=== PATIENT | female | born 1955 | race Hispanic/Latino ===

== ENCOUNTER 2017-02-13 14:56 | Emergency (ER) | payer MEDICAID ==
[2017-02-13 15:11] VITALS: BP 137/79; PULSE 97; RESP 16; TEMP 98.1; O2SAT 98
[2017-02-13] MEDS ORDERED: Sodium Chloride 0.9% 1,000 ML IV STA (15:20)
--- NOTE | 2017-02-13 15:31 | ED PDOC ---
Hyperglycemia/Hypoglycemia Time Seen by Provider: 02/13/17 15:13 Chief Complaint (Nursing): High Blood Sugar Chief Complaint (Provider): High Blood Sugar History Per: Patient History/Exam Limitations: no limitations Onset/Duration Of Symptoms: Days (x2 days) Current Symptoms Are (Timing): Still Present : The patient does not have any of the infectious symptoms listed except for those marked. Additional Complaint(s): 61 y/o female with a past medical history of diabetes, hypertension, hypercholesterolemia, and early cirrhosis who presents to the emergency department with ongoing hyperglycemia x2 days. Associated with lightheadedness, weakness, dizziness, mild dyspnea on exertion excessive thirst and urination. Reports it is because she ran out of the type of insulin she is prescribed and is to expensive to pay for her refills. States she was experiencing a mild cough and leg swelling last week but had resolved since. Denies fever, headache , or syncopal episodes. PMD: Dr. Cox Past Medical History Reviewed: Historical Data, Nursing Documentation, Vital Signs Vital Signs: Last Vital Signs Temp 98.1 F 02/13/17 15:09 Pulse 97 H 02/13/17 15:09 Resp 16 02/13/17 15:09 BP 137/79 02/13/17 15:09 Pulse Ox 98 02/13/17 15:09 - Medical History PMH: Diabetes, HTN Denies: Hyperthyroidism, Hypothyroidism - Surgical History Surgical History: Other surgeries: Tubal ligation, fibroid resection, and breat reduction - Family History Family History: States: Unknown Family Hx, Diabetes - Social History Current smoker - smoking cessation education provided: No Alcohol: None Drugs: Denies - Home Medications Home Medications: Ambulatory Orders Medication Instructions Recorded Meclizine [Meclizine*] 25 mg PO TID PRN #10 tab 10/14/14 Ondansetron ODT [Zofran ODT] 4 mg PO Q8H PRN #20 odt 03/24/15 Cephalexin [Keflex] 500 mg PO Q6 #28 cap 07/13/15 Sulfamethoxazole/Trimethoprim 2 tab PO BID #28 tab 07/13/15 [Bactrim DS 800 mg-160 mg] Famotidine [Pepcid] 20 mg PO BID #8 tab 08/07/15 Prednisone 40 mg PO DAILY #8 tablet 08/07/15 Ibuprofen [Advil Liqui-Gels] 2 tab PO Q8 PRN #0 capsule 11/30/15 oxyCODONE/Acetaminophen [Percocet 1 ea PO Q6 PRN #10 tab 11/30/15 5/325 mg Tab] Ondansetron [Zofran] 4 mg PO Q8H PRN #30 tab 02/26/16 - Allergies Allergies/Adverse Reactions: Allergies Allergy/AdvReac Type Severity Reaction Status Date / Time sesame seed Allergy RASH Verified 02/26/16 17:02 Review of Systems ROS Statement: Except As Marked, All Systems Reviewed And Found Negative Constitutional: Positive for: Other (Excessive thirst) Respiratory: Positive for: Cough (Had resolved since), Other (Mild dyspnea on exertion) Genitourinary Female: Positive for: Frequency Musculoskeletal: Positive for: Other (Leg swelling (had resolved since)) Neurological: Positive for: Weakness, Dizziness (Lightheadedness). Negative for : Other (syncopal episode) Physical Exam - Reviewed Nursing Documentation Reviewed: Yes Vital Signs Reviewed: Yes - Physical Exam Appears: Positive for: Well, No Acute Distress Head Exam: Positive for: ATRAUMATIC, NORMOCEPHALIC Skin: Positive for: Warm, Dry Eye Exam: Positive for: EOMI, PERRL ENT: Negative for: Pharyngeal Erythema, Tonsillar Exudate Neck: Positive for: Painless ROM, Supple Cardiovascular/Chest: Positive for: Regular Rate, Rhythm, Chest Non Tender. Negative for: Murmur Respiratory: Positive for: Normal Breath Sounds, Rhonchi. Negative for: Accessory Muscle Use, Respiratory Distress Gastrointestinal/Abdominal: Positive for: Soft. Negative for: Tenderness Back: Positive for: Normal Inspection. Negative for: Vertebral Tenderness Extremity: Positive for: Normal ROM. Negative for: Deformity Lymphatic: Negative for: Adenopathy Neurologic/Psych: Positive for: Alert. Negative for: Motor/Sensory Deficits - Laboratory Results Result Diagrams: 02/13/17 15:37 02/13/17 15:37 - ECG O2 Sat by Pulse Oximetry: 98 (RA) Pulse Ox Interpretation: Normal Medical Decision Making Medical Decision Making: Time: 15:24 Initial Impression: Hyperglycemia. Differential includes DKA, dehydration, and electrolyte abnormality Initial Plan: --VBG --Labs --Urine DIP --Blood work-up --Sodium Chloride 1L IV --Urinalysis --Urine DIP --Reevaluation Labs consistent with dehydration and hyperglycemia. Accucheck improved with IVF Insl[place] given in ER. Advised strict diabetic diet, increase water intake, and follow up with Dr Dilshad billings Scribe Attestation: Documented by Greta Sharif, acting as a scribe for Daniella Burgess MD. Provider Scribe Attestation: All medical record entries made by the Scribe were at my direction and personally dictated by me. I have reviewed the chart and agree that the record accurately reflects my personal performance of the history, physical exam, medical decision making, and the department course for this patient. I have also personally directed, reviewed, and agree with the discharge instructions and disposition. Disposition - Clinical Impression Clinical Impression: Hyperglycemia Counseled Patient/Family Regarding: Studies Performed, Diagnosis, Need For Followup - Disposition Referrals: Isa Yung MD [Medical Doctor] - 02/14/17 Disposition: Routine/Home Disposition Time: 17:27 Condition: IMPROVED Instructions: Diabetic Hyperglycemia (ED) Print Language: GREENLANDIC
[2017-02-13 15:40] LABS: VENOUS BLOOD GAS BASE EXCESS 1.9 mmol/L (0.0-2.0); VENOUS BLOOD GAS PCO2 41 mmHg (40-60); VENOUS BLOOD PH 7.42 (7.32-7.43)
[2017-02-13 15:44] LABS: BASO # 0.1 K/uL (0.0-0.2); BASO % 0.9 % (0.0-2.0); EOS # 0.2 K/uL (0.0-0.7); EOS % 2.4 % (0.0-4.0); HEMATOCRIT 38.1 % (34.0-47.0); LYMPH % 40.2 % (20.0-40.0); MEAN CELL VOLUME 85.4 fl (81.0-99.0); MEAN CORPUSCULAR HEMOGLOBIN 28.4 pg (27.0-31.0); MEAN CORPUSCULAR HGB CONC 33.3 g/dL (33.0-37.0); MEAN PLATELET VOLUME 10.1 fl (7.2-11.7); MONO # 0.7 K/uL (0.0-0.8); MONO % 9.9 % (0.0-10.0); NEUT # 3.5 K/uL (1.8-7.0); NEUT % 46.6 % (50.0-75.0); NRBC % 0.1 % (0.0-0.0); RED CELL DISTRIBUTION WIDTH 14.2 % (11.5-14.5); WHITE BLOOD COUNT 7.4 K/uL (4.8-10.8)
[2017-02-13 16:03] LABS: ALB/GLOB RATIO 0.8 (1.0-2.1); ALKALINE PHOSPHATASE 112 U/L (38-126); ALT/SGPT 69 U/L (9-52); AST/SGOT 67 U/L (14-36); BILIRUBIN,TOTAL 0.6 mg/dl (0.2-1.3); BLOOD UREA NITROGEN 20 mg/dl (7-17); CALCIUM 10.3 mg/dL (8.4-10.2); CARBON DIOXIDE 22 mmol/L (22-30); CHLORIDE 98 mmol/L (98-107); GFR AFRICAN-AMERICAN > 60; GLUCOSE,RANDOM 331 mg/dL (65-105); MAGNESIUM 1.6 MG/DL (1.6-2.3); POTASSIUM 4.5 MMOL/L (3.6-5.0); SODIUM 134 mmol/l (132-148); TOTAL PROTEIN 9.5 G/DL (6.3-8.2)
[2017-02-13 16:22] LABS: PARTIAL THROMBOPLASTIN TIME 30.5 Seconds (25.6-37.1)
[2017-02-13 16:40] LABS: RBC URINE 7 /hpf (0-3); URINE BILIRUBIN NEGATIVE (NEGATIVE); URINE BLOOD NEGATIVE (NEGATIVE); URINE COLOR YELLOW (YELLOW); URINE GLUCOSE (UA) >=500 mg/dL (Normal); URINE KETONE NEGATIVE (NEGATIVE); URINE LEUKOCYTE ESTERASE NEG Leu/uL (Negative); URINE PROTEIN 30 mg/dL (NEGATIVE); URINE UROBILINOGEN 0.2-1.0 mg/dL (0.2-1.0); WBC URINE 2 /hpf (0-5)
[2017-02-13] MEDS ORDERED: Insulin Regular 100 units/ml SC STA (17:27)
[2017-02-13] MEDS ORDERED: Insulin Regular 100 units/ml ONE (17:35)
== END 2017-02-13 17:56 | disposition home or self-care (01) ==
LOC: H.ER 14:56
DX: E11.65 Type 2 diabetes mellitus with hyperglycemia (principal); I10 Essential (primary) hypertension
CPT/HCPCS: 80053; 81003; 82803; 82948; 83735; 84100; 84484; 85025; 85610; 85730; 96360; 96372; 99283; J7040

== ENCOUNTER 2017-05-02 18:17 | Emergency (ER) | payer MEDICAID ==
[2017-05-02 18:32] VITALS: O2SAT 97
[2017-05-02] MEDS ORDERED: Sodium Chloride 0.9% 1,000 ML IV STA ×2 (19:53→21:42)
--- NOTE | 2017-05-02 20:21 | ED PDOC ---
Hyperglycemia/Hypoglycemia Time Seen by Provider: 05/02/17 19:15 Chief Complaint (Nursing): High Blood Sugar Chief Complaint (Provider): High Blood Sugar History Per: Patient History/Exam Limitations: no limitations Onset/Duration Of Symptoms: Days (x 1 week) Current Symptoms Are (Timing): Still Present : The patient does not have any of the infectious symptoms listed except for those marked. Additional Complaint(s): Janie Wells is a 61 year old female with a past medical history of diabetes and hypertension presents to the ED complaining of elevated blood sugar and associated dry mouth, onset 1 week. Patient is insulin dependent diabetic. Denies fever, vomiting, diarrhea and nausea. PMD: Dr. Courtney Gonzalez Past Medical History Reviewed: Historical Data, Nursing Documentation, Vital Signs Vital Signs: Last Vital Signs Temp 97.8 F 05/02/17 18:29 Pulse 89 05/02/17 18:29 Resp 16 05/02/17 18:29 BP 136/78 05/02/17 18:29 Pulse Ox 97 05/02/17 18:29 - Medical History PMH: Diabetes, HTN Denies: Hyperthyroidism, Hypothyroidism - Surgical History Surgical History: Other surgeries: tubal ligation - Family History Family History: States: Unknown Family Hx, Diabetes - Social History Current smoker - smoking cessation education provided: No Alcohol: None Drugs: Denies - Home Medications Home Medications: Ambulatory Orders Medication Instructions Recorded Meclizine [Meclizine*] 25 mg PO TID PRN #10 tab 10/14/14 Ondansetron ODT [Zofran ODT] 4 mg PO Q8H PRN #20 odt 03/24/15 Cephalexin [Keflex] 500 mg PO Q6 #28 cap 07/13/15 Sulfamethoxazole/Trimethoprim 2 tab PO BID #28 tab 07/13/15 [Bactrim DS 800 mg-160 mg] Famotidine [Pepcid] 20 mg PO BID #8 tab 08/07/15 Prednisone 40 mg PO DAILY #8 tablet 08/07/15 Ibuprofen [Advil Liqui-Gels] 2 tab PO Q8 PRN #0 capsule 11/30/15 oxyCODONE/Acetaminophen [Percocet 1 ea PO Q6 PRN #10 tab 11/30/15 5/325 mg Tab] Ondansetron [Zofran] 4 mg PO Q8H PRN #30 tab 02/26/16 Nitrofurantoin Macrocrystals 100 mg PO BID #14 cap 05/03/17 [Macrobid] - Allergies Allergies/Adverse Reactions: Allergies Allergy/AdvReac Type Severity Reaction Status Date / Time sesame seed Allergy RASH Verified 05/02/17 18:29 Review of Systems ROS Statement: Except As Marked, All Systems Reviewed And Found Negative Constitutional: Negative for: Fever Gastrointestinal: Negative for: Nausea, Vomiting, Diarrhea Physical Exam - Reviewed Nursing Documentation Reviewed: Yes Vital Signs Reviewed: Yes - Physical Exam Appears: Positive for: Non-toxic, No Acute Distress Head Exam: Positive for: ATRAUMATIC, NORMOCEPHALIC Skin: Positive for: Normal Color, Warm, Dry Eye Exam: Positive for: Normal appearance, EOMI, PERRL ENT: Positive for: Other (dry mucous membranes) Neck: Positive for: Normal, Painless ROM, Supple Cardiovascular/Chest: Positive for: Regular Rate, Rhythm. Negative for: Murmur Respiratory: Positive for: Normal Breath Sounds. Negative for: Respiratory Distress Neurologic/Psych: Positive for: Alert, Oriented. Negative for: Motor/Sensory Deficits - Laboratory Results Result Diagrams: 05/02/17 20:31 05/02/17 20:53 - ECG O2 Sat by Pulse Oximetry: 97 (RA) Pulse Ox Interpretation: Normal Medical Decision Making Medical Decision Making: Time: 19:52 Impression: Dry mucous membranes rule out hyperglycemia, Diabetic Ketoacidosis Initial Plan: --CMP --CBC --Urine culture --Urinalysis --Sodium Chloride IV 1,000 mls/hr --Chest X-ray portable Time: 21:42 --Regular Human Insulin 4 units IV anion gap normal. Chest X-ray --read by me, no active infiltrate. Time: 22:49 --Rocephin 50 ml IVPB for uti pt reevaluated, feels better. will be dc home with oral abx for uti Scribe Attestation: Documented by Annamarie Bradley, acting as a scribe for Katarina Bertrand MD Provider Scribe Attestation: All medical record entries made by the Scribe were at my direction and personally dictated by me. I have reviewed the chart and agree that the record accurately reflects my personal performance of the history, physical exam, medical decision making, and the department course for this patient. I have also personally directed, reviewed, and agree with the discharge instructions and disposition. Disposition - Clinical Impression Clinical Impression: Diabetes mellitus with hyperglycemia, UTI (urinary tract infection) - Patient ED Disposition Is Patient to be Admitted: No Counseled Patient/Family Regarding: Studies Performed, Diagnosis, Need For Followup - Disposition Referrals: [facility] [Outside] Disposition: Routine/Home Disposition Time: 22:00 Condition: IMPROVED Additional Instructions: follow up with your primary doctor in 1-2 days return to the ED with any worsening or concerning symptoms. Prescriptions: Nitrofurantoin Macrocrystals [Macrobid] 100 mg PO BID #14 cap Instructions: Urinary Tract Infection in Women (ED), Diabetic Hyperglycemia (ED ) Forms: [facility] (Liberian) Print Language: MACEDONIAN
[2017-05-02 20:35] LABS: BASO % 0.5 % (0.0-2.0); EOS # 0.2 K/uL (0.0-0.7); EOS % 2.7 % (0.0-4.0); HEMATOCRIT 40.7 % (34.0-47.0); LYMPH # 2.9 K/uL (1.0-4.3); LYMPH % 38.4 % (20.0-40.0); MEAN CORPUSCULAR HEMOGLOBIN 28.1 pg (27.0-31.0); MEAN CORPUSCULAR HGB CONC 32.6 g/dL (33.0-37.0); MEAN PLATELET VOLUME 10.8 fl (7.2-11.7); MONO # 0.8 K/uL (0.0-0.8); MONO % 10.6 % (0.0-10.0); NEUT # 3.6 K/uL (1.8-7.0); NEUT % 47.8 % (50.0-75.0); RED CELL DISTRIBUTION WIDTH 15.5 % (11.5-14.5); WHITE BLOOD COUNT 7.4 K/uL (4.8-10.8)
[2017-05-02 20:41] LABS: RBC URINE 13 /hpf (0-3); URINE BACTERIA RARE (<OCC); URINE BILIRUBIN NEGATIVE (NEGATIVE); URINE BLOOD SMALL (NEGATIVE); URINE COLOR YELLOW (YELLOW); URINE GLUCOSE (UA) >=500 mg/dL (Normal); URINE KETONE NEGATIVE (NEGATIVE); URINE LEUKOCYTE ESTERASE LARGE Leu/uL (Negative); URINE PROTEIN 30 mg/dL (NEGATIVE); URINE UROBILINOGEN 0.2-1.0 mg/dL (0.2-1.0); WBC URINE 47 /hpf (0-5)
[2017-05-02 21:13] LABS: ALKALINE PHOSPHATASE 104 U/L (38-126); ALT/SGPT 74 U/L (9-52); AST/SGOT 71 U/L (14-36); BILIRUBIN,TOTAL 0.4 mg/dl (0.2-1.3); BLOOD UREA NITROGEN 14 mg/dl (7-17); CALCIUM 9.3 mg/dL (8.4-10.2); CARBON DIOXIDE 25 mmol/L (22-30); CHLORIDE 101 mmol/L (98-107); GFR AFRICAN-AMERICAN > 60; GLUCOSE,RANDOM 321 mg/dL (65-105); POTASSIUM 4.5 MMOL/L (3.6-5.0); SODIUM 136 mmol/l (132-148); TOTAL PROTEIN 9.3 G/DL (6.3-8.2)
[2017-05-02 21:16] LABS: ALB/GLOB RATIO 0.7 (1.0-2.1)
[2017-05-02] MEDS ORDERED: Insulin Regular 100 units/ml IV STA (21:42)
[2017-05-02] MEDS ORDERED: cefTRIAXone IV 1 gm in Dextros 50 ML IVPB ONE (22:47)
[2017-05-02] MEDS ORDERED: cefTRIAXone IV 1 gm in Dextros 50 ML IVPB STA (22:49)
[2017-05-03 01:04] VITALS: BP 136/82; PULSE 81; RESP 17; TEMP 97.9
--- NOTE | 2017-05-03 08:58 | RAD ---
HISTORY: hyperglycemia COMPARISON: Chest 11/30/2015. FINDINGS: LUNGS: Inspiratory volume appears somewhat diminished with likely resultant crowding of the bilateral basilar bronchovascular marking. No definitive infiltrate appreciated bilaterally. PLEURA: No significant pleural effusion identified, no pneumothorax apparent. CARDIOVASCULAR: Cardiac silhouette appears stable. No pulmonary vascular derangement identified. OSSEOUS STRUCTURES: No significant abnormalities. VISUALIZED UPPER ABDOMEN: Normal. OTHER FINDINGS: None. IMPRESSION: Somewhat diminished inspiratory volume. No definite infiltrate or pleural effusion appreciated bilaterally.
== END 2017-05-03 01:10 | disposition home or self-care (01) ==
LOC: H.ER 18:17
DX: E11.65 Type 2 diabetes mellitus with hyperglycemia (principal); N39.0 Urinary tract infection, site not specified; I10 Essential (primary) hypertension
CPT/HCPCS: 71010; 80053; 81003; 82948; 85025; 87086; 96361; 96365; 96375; 99284; J0696; J7040

== ENCOUNTER 2017-10-23 12:07 | Emergency (ER) | payer MEDICAID ==
[2017-10-23 12:35] VITALS: RESP 18; TEMP 97; O2SAT 97
[2017-10-23 12:51] VITALS: BP 169/91; PULSE 87
[2017-10-23] MEDS ORDERED: Sodium Chloride 0.9% 1,000 ML IV STA (13:09)
--- NOTE | 2017-10-23 13:21 | ED PDOC ---
Hyperglycemia/Hypoglycemia Time Seen by Provider: 10/23/17 13:05 Chief Complaint (Nursing): High Blood Sugar Chief Complaint (Provider): High Blood Sugar History Per: Patient History/Exam Limitations: no limitations Onset/Duration Of Symptoms: Days (30) Current Symptoms Are (Timing): Still Present : The patient does not have any of the infectious symptoms listed except for those marked. Additional Complaint(s): 62 year old female with a past medical history of insulin dependant diabetes and HTN presents to the ED complaining of elevated blood glucose at home associated with dizziness and nausea, onset one month. Patient is compliant with medications including insulin and with diet. PMD: Marie Burks Past Medical History Reviewed: Historical Data, Nursing Documentation, Vital Signs Vital Signs: Last Vital Signs Temp 97 F L 10/23/17 12:30 Pulse 87 10/23/17 12:51 Resp 18 10/23/17 12:30 BP 169/91 H 10/23/17 12:51 Pulse Ox 97 10/23/17 12:30 - Medical History PMH: Diabetes, HTN Denies: Hyperthyroidism, Hypothyroidism - Surgical History Surgical History: - Family History Family History: States: Unknown Family Hx, Diabetes - Home Medications Home Medications: Ambulatory Orders Medication Instructions Recorded Meclizine [Meclizine*] 25 mg PO TID PRN #10 tab 10/14/14 Ondansetron ODT [Zofran ODT] 4 mg PO Q8H PRN #20 odt 03/24/15 Cephalexin [Keflex] 500 mg PO Q6 #28 cap 07/13/15 Sulfamethoxazole/Trimethoprim 2 tab PO BID #28 tab 07/13/15 [Bactrim DS 800 mg-160 mg] Famotidine [Pepcid] 20 mg PO BID #8 tab 08/07/15 Prednisone 40 mg PO DAILY #8 tablet 08/07/15 Ibuprofen [Advil Liqui-Gels] 2 tab PO Q8 PRN #0 capsule 11/30/15 oxyCODONE/Acetaminophen [Percocet 1 ea PO Q6 PRN #10 tab 11/30/15 5/325 mg Tab] Ondansetron [Zofran] 4 mg PO Q8H PRN #30 tab 02/26/16 Nitrofurantoin Macrocrystals 100 mg PO BID #14 cap 05/03/17 [Macrobid] - Allergies Allergies/Adverse Reactions: Allergies Allergy/AdvReac Type Severity Reaction Status Date / Time sesame seed Allergy RASH Verified 05/02/17 18:29 Review of Systems ROS Statement: Except As Marked, All Systems Reviewed And Found Negative Constitutional: Positive for: Other (elevated blood glucose level ) Gastrointestinal: Positive for: Nausea Neurological: Positive for: Dizziness Physical Exam - Reviewed Nursing Documentation Reviewed: Yes - Physical Exam Appears: Positive for: Non-toxic, No Acute Distress Head Exam: Positive for: ATRAUMATIC, NORMAL INSPECTION, NORMOCEPHALIC Skin: Positive for: Normal Color, Warm, Dry Eye Exam: Positive for: EOMI, Normal appearance, PERRL ENT: Positive for: Normal ENT Inspection Neck: Positive for: Normal, Painless ROM, Supple Cardiovascular/Chest: Positive for: Regular Rate, Rhythm. Negative for: Murmur Respiratory: Positive for: Normal Breath Sounds. Negative for: Respiratory Distress Gastrointestinal/Abdominal: Positive for: Normal Exam, Soft. Negative for: Tenderness Back: Positive for: Normal Inspection. Negative for: L CVA Tenderness, R CVA Tenderness, Vertebral Tenderness Extremity: Positive for: Normal ROM. Negative for: Pedal Edema, Deformity Neurologic/Psych: Positive for: Alert, Oriented (x3). Negative for: Motor/ Sensory Deficits - Laboratory Results Result Diagrams: 10/23/17 14:13 10/23/17 14:13 - ECG O2 Sat by Pulse Oximetry: 97 (RA) Pulse Ox Interpretation: Normal Medical Decision Making Medical Decision Making: Time: 1310 Plan: -- EKG -- CMP -- ED Urine Dipstick -- CBC with differentials -- Sodium Chloride 150 mls/hr IV Scribe Attestation: Documented by Vicki Connor, acting as a scribe for Dr. Emeka Lazaro MD. Provider Scribe Attestation: All medical record entries made by the Scribe were at my direction and personally dictated by me. I have reviewed the chart and agree that the record accurately reflects my personal performance of the history, physical exam, medical decision making, and the department course for this patient. I have also personally directed, reviewed, and agree with the discharge instructions and disposition. Disposition - Clinical Impression Clinical Impression: Hyperglycemia - Patient ED Disposition Is Patient to be Admitted: No Counseled Patient/Family Regarding: Studies Performed, Diagnosis, Need For Followup - Disposition Referrals: [facility] [Outside] Disposition: Routine/Home Disposition Time: 17:23 Condition: FAIR Instructions: Hyperglycemia, Adult Forms: [facility] (Slovak) Print Language: ARMENIAN
[2017-10-23 14:27] LABS: BASO % 0.3 % (0.0-2.0); EOS # 0.2 K/uL (0.0-0.7); EOS % 3.5 % (0.0-4.0); HEMOGLOBIN 12.4 g/dL (12.0-16.0); MEAN CORPUSCULAR HEMOGLOBIN 29.5 pg (27.0-31.0); MEAN CORPUSCULAR HGB CONC 33.9 g/dL (33.0-37.0); MEAN PLATELET VOLUME 10.5 fl (7.2-11.7); MONO # 0.7 K/uL (0.0-0.8); MONO % 10.4 % (0.0-10.0); NEUT # 3.1 K/uL (1.8-7.0); NEUT % 43.8 % (50.0-75.0); NRBC % 0.3 % (0.0-0.0); RBC 4.19 Mil/uL (3.80-5.20); RED CELL DISTRIBUTION WIDTH 14.7 % (11.5-14.5); WHITE BLOOD COUNT 7.1 K/uL (4.8-10.8)
[2017-10-23 14:41] LABS: ALB/GLOB RATIO 0.7 (1.0-2.1); ALBUMIN 3.8 g/dL (3.5-5.0); ALT/SGPT 57 U/L (9-52); AST/SGOT 69 U/L (14-36); BLOOD UREA NITROGEN 18 mg/dl (7-17); CALCIUM 9.4 mg/dL (8.4-10.2); GFR AFRICAN-AMERICAN > 60; GFR NON-AFRICAN AMERICAN > 60
--- NOTE | 2017-10-24 14:19 | CARD ---
APPROVED REPORT EKG Measurement Heart [id number] <Conclusion> Normal sinus rhythm Left axis deviation Abnormal ECG
== END 2017-10-23 18:19 | disposition home or self-care (01) ==
LOC: H.ER 12:07
DX: E11.65 Type 2 diabetes mellitus with hyperglycemia (principal); I10 Essential (primary) hypertension
CPT/HCPCS: 80053; 82948; 85025; 93005; 99283; J7030

== ENCOUNTER 2017-12-04 11:55 | Emergency (ER) | payer MEDICAID ==
[2017-12-04 12:09] VITALS: TEMP 97.3; O2SAT 99; BMI 31.8
[2017-12-04] MEDS ORDERED: Insulin Regular 100 units/ml IVP ONE (13:13)
[2017-12-04] MEDS ORDERED: Sodium Chloride 0.9% 1,000 ML IV STA (13:13)
--- NOTE | 2017-12-04 13:26 | ED PDOC ---
Hyperglycemia/Hypoglycemia Time Seen by Provider: 12/04/17 13:00 Chief Complaint (Nursing): High Blood Sugar Chief Complaint (Provider): elevated blood sugar History Per: Patient, Refining Supervisor (Nanette Cadet) History/Exam Limitations: no limitations Onset/Duration Of Symptoms: Days (4-5) Current Symptoms Are (Timing): Still Present Severity: Moderate Current Diabetic Medications: Insulin, Oral Medication Associated Infectious Symptoms: Cough, Urinary Frequency, Nausea. denies: Sore Throat, Sinus Congestion, Dysuria, Vomiting, Diarrhea : The patient does not have any of the infectious symptoms listed except for those marked. Treatment Prior To Provider Evaluation: Other (took insulin at home) Additional Complaint(s): 62yo female presents c/o persistently elevated blood sugar readings this week despite insulin therapy, urinary frequency and generalized weakness. Denies fever, chest , back or abdominal pain, SOB, headache or syncope. Taking insulin at home as per Dr Yung endocrinology. Past Medical History Reviewed: Historical Data, Nursing Documentation, Vital Signs Vital Signs: Last Vital Signs Temp 97.3 F L 12/04/17 12:07 Pulse 88 12/04/17 12:07 Resp BP 172/90 H 12/04/17 12:07 Pulse Ox 99 12/04/17 12:07 - Medical History PMH: Diabetes, HTN Denies: Hyperthyroidism, Hypothyroidism - Surgical History Surgical History: - Family History Family History: States: Unknown Family Hx, Diabetes - Social History Current smoker - smoking cessation education provided: No - Home Medications Home Medications: Ambulatory Orders Medication Instructions Recorded Meclizine [Meclizine*] 25 mg PO TID PRN #10 tab 10/14/14 Ondansetron ODT [Zofran ODT] 4 mg PO Q8H PRN #20 odt 03/24/15 Cephalexin [Keflex] 500 mg PO Q6 #28 cap 07/13/15 Sulfamethoxazole/Trimethoprim 2 tab PO BID #28 tab 07/13/15 [Bactrim DS 800 mg-160 mg] Famotidine [Pepcid] 20 mg PO BID #8 tab 08/07/15 Prednisone 40 mg PO DAILY #8 tablet 08/07/15 Ibuprofen [Advil Liqui-Gels] 2 tab PO Q8 PRN #0 capsule 11/30/15 oxyCODONE/Acetaminophen [Percocet 1 ea PO Q6 PRN #10 tab 11/30/15 5/325 mg Tab] Ondansetron [Zofran] 4 mg PO Q8H PRN #30 tab 02/26/16 Nitrofurantoin Macrocrystals 100 mg PO BID #14 cap 05/03/17 [Macrobid] - Allergies Allergies/Adverse Reactions: Allergies Allergy/AdvReac Type Severity Reaction Status Date / Time sesame seed Allergy RASH Verified 12/04/17 12:46 Review of Systems Constitutional: Positive for: Weakness. Negative for: Weight loss Eyes: Negative for: Vision Change ENT: Negative for: Throat Pain Cardiovascular: Negative for: Chest Pain Respiratory: Negative for: Cough, Shortness of Breath Gastrointestinal: Positive for: Nausea Genitourinary Female: Positive for: Frequency. Negative for: Hematuria, Vaginal Discharge Musculoskeletal: Negative for: Neck Pain Skin: Negative for: Rash, Lesions Neurological: Positive for: Headache, Dizziness. Negative for: Weakness, Numbness Psych: Negative for: Suicidal ideation Physical Exam - Reviewed Nursing Documentation Reviewed: Yes Vital Signs Reviewed: Yes - Physical Exam Appears: Positive for: Well, Non-toxic, No Acute Distress Head Exam: Positive for: ATRAUMATIC, NORMAL INSPECTION, NORMOCEPHALIC Skin: Positive for: Normal Color, Warm, DRY Eye Exam: Positive for: EOMI, Normal appearance, PERRL ENT: Positive for: Normal ENT Inspection Neck: Positive for: Normal, Painless ROM Cardiovascular/Chest: Positive for: Regular Rate, Rhythm Respiratory: Positive for: CNT, Normal Breath Sounds Gastrointestinal/Abdominal: Positive for: Normal Exam, Soft Back: Positive for: Normal Inspection Extremity: Positive for: Normal ROM Neurologic/Psych: Positive for: Alert, Oriented - ECG ECG: Positive for: Interpreted By Me ECG Rhythm: Positive for: Normal ST Segment, Sinus Rhythm Interpretation Of ECG: LAD Rate: 76 O2 Sat by Pulse Oximetry: 99 Pulse Ox Interpretation: Normal - Radiology X-Ray: Interpreted by Me X-Ray Interpretation: No Acute Disease Medical Decision Making Medical Decision Making: workup for hyperglycemia initiated r/o infection, dehydration, DKA or organ failure IVF and insulin ordered Disposition - Clinical Impression Clinical Impression: Hyperglycemia - Disposition Forms: [facility] (Barbadian)
[2017-12-04] MEDS ORDERED: Insulin Regular 100 units/ml ONE (13:54)
[2017-12-04 14:03] LABS: BASO # 0.1 K/uL (0.0-0.2); BASO % 1.1 % (0.0-2.0); EOS # 0.2 K/uL (0.0-0.7); EOS % 3.7 % (0.0-4.0); HEMOGLOBIN 13.5 g/dL (12.0-16.0); LYMPH # 2.1 K/uL (1.0-4.3); LYMPH % 36.2 % (20.0-40.0); MEAN CORPUSCULAR HEMOGLOBIN 29.7 pg (27.0-31.0); MEAN CORPUSCULAR HGB CONC 34.1 g/dL (33.0-37.0); MEAN PLATELET VOLUME 10.4 fl (7.2-11.7); MONO # 0.6 K/uL (0.0-0.8); MONO % 9.5 % (0.0-10.0); NEUT # 2.9 K/uL (1.8-7.0); NEUT % 49.5 % (50.0-75.0); RBC 4.53 Mil/uL (3.80-5.20); RED CELL DISTRIBUTION WIDTH 14.3 % (11.5-14.5); WHITE BLOOD COUNT 5.9 K/uL (4.8-10.8)
[2017-12-04 14:13] LABS: ALB/GLOB RATIO 0.7 (1.0-2.1); ALBUMIN 4.1 g/dL (3.5-5.0); ALT/SGPT 65 U/L (9-52); AST/SGOT 86 U/L (14-36); BLOOD UREA NITROGEN 12 mg/dl (7-17); CALCIUM 9.6 mg/dL (8.4-10.2); GFR AFRICAN-AMERICAN > 60; GFR NON-AFRICAN AMERICAN > 60
[2017-12-04 14:36] LABS: SQUAMOUS EPITHIAL 1 /hpf (0-5); URINE BILIRUBIN NEGATIVE (NEGATIVE); URINE BLOOD NEGATIVE (NEGATIVE); URINE CLARITY SLIGHTY-CLOUDY (Clear); URINE COLOR YELLOW (YELLOW); URINE GLUCOSE (UA) >=500 mg/dL (Normal); URINE LEUKOCYTE ESTERASE NEG Leu/uL (Negative); URINE PROTEIN NEGATIVE (NEGATIVE); URINE UROBILINOGEN 0.2-1.0 mg/dL (0.2-1.0)
--- NOTE | 2017-12-04 14:38 | RAD ---
Date of service: 12/04/2017 HISTORY: chest pain/ r/o infiltrate COMPARISON: Comparison chest 05/02/2019. . TECHNIQUE: Chest PA and lateral FINDINGS: LUNGS: Minor bibasilar atelectasis and/or scarring. Developing lower lobe infiltrates could be excluded with followup radiographs. Persistent elevation right hemidiaphragm possibly due to eventration. PLEURA: No significant pleural effusion identified. No pneumothorax apparent. CARDIOVASCULAR: Normal. OSSEOUS STRUCTURES: No significant abnormalities. VISUALIZED UPPER ABDOMEN: Normal. OTHER FINDINGS: None. IMPRESSION: Minor bibasilar atelectasis and/or scarring. Developing lower lobe infiltrates could be excluded with followup radiographs. . Persistent elevation right hemidiaphragm possibly due to eventration. This report placed in PA review folder for followup
--- NOTE | 2017-12-04 15:22 | ED PDOC ---
- Laboratory Results Result Diagrams: 12/04/17 13:50 12/04/17 13:50 Interpretation Of Abn Labs: repeat sugar improved and below 250 - ECG ECG: Positive for: Interpreted By Me, Viewed By Me ECG Rhythm: Positive for: Normal QRS, Normal ST Segment, Sinus Rhythm O2 Sat by Pulse Oximetry: 99 (RA) Pulse Ox Interpretation: Normal - Progress ED Course And Treament: 1634: Feels much better. AAOx3. Pain free. Tolerated PO. Fu with pcp. Sugar improved. No dizziness. Medical Decision Making Medical Decision Making: Patient signed out to provider at [address] Persaud pending improved glycemic control. Documented by Jeanna Singletary acting as a scribe for Oracio Strickland MD. All medical record entries made by the Scribe were at my direction and personally dictated by me. I have reviewed the chart and agree that the record accurately reflects my personal performance of the history, physical exam, medical decision making, and the department course for this patient. I have also personally directed, reviewed, and agree with the discharge instructions and disposition. Disposition - Clinical Impression Clinical Impression: Hyperglycemia - POA Present On Arrival: Poor Glycemic Control - Disposition Referrals: [facility] [Outside] - 12/05/17 Disposition: Routine/Home Disposition Time: 16:34 Condition: STABLE Additional Instructions: Return if not better in 3 days. Instructions: Hyperglycemia, Adult Print Language: VIETNAMESE
[2017-12-04 16:48] VITALS: BP 156/89; PULSE 83; RESP 18
--- NOTE | 2017-12-05 10:05 | CARD ---
APPROVED REPORT Date of service: 12/04/2017 EKG Measurement Heart [id number] <Conclusion> Normal sinus rhythm Left axis deviation Minimal voltage criteria for LVH, may be normal variant Abnormal ECG
== END 2017-12-04 16:44 | disposition home or self-care (01) ==
LOC: H.ER 11:55
DX: E11.65 Type 2 diabetes mellitus with hyperglycemia (principal); I10 Essential (primary) hypertension
CPT/HCPCS: 71046; 80053; 81003; 82948; 84484; 85025; 87086; 93005; 96374; 99284; J7030

== ENCOUNTER 2017-12-16 23:17 | Emergency (ER) | payer MEDICAID ==
[2017-12-16 23:17] VITALS: BMI 31.8
--- NOTE | 2017-12-16 23:54 | ED PDOC ---
HPI: CCC, URI, Sore Throat Time Seen by Provider: 12/16/17 23:36 Chief Complaint (Nursing): Abnormal Labs Chief Complaint (Provider): cough History Per: Patient History/Exam Limitations: no limitations Onset/Duration Of Symptoms: Persistent Current Symptoms Are (Timing): Still Present Additional Complaint(s): 62 year old female with pmHx of HTN and DM, arrives to ED to follow up on an abnormal CXR from her visit on 12/04/17. Upon reviewing old charts, patient's last CXR showed a questionable pneumonia and staff was unable to reach her by phone. Patient returns today reporting a mild cough but no further complaints. She denies fever, chills, chest pain or shortness of breath. PMD: Dr. Courtney Cox Past Medical History Reviewed: Historical Data, Nursing Documentation, Vital Signs Vital Signs: Last Vital Signs Temp 98.2 F 12/17/17 05:53 Pulse 78 12/17/17 05:53 Resp 18 12/17/17 05:53 BP 127/80 12/17/17 05:53 Pulse Ox 96 12/17/17 19:25 - Medical History PMH: Diabetes, HTN Denies: Hyperthyroidism, Hypothyroidism - Surgical History Surgical History: - Family History Family History: States: Unknown Family Hx, Diabetes - Social History Current smoker - smoking cessation education provided: No Alcohol: None Drugs: Denies - Home Medications Home Medications: Ambulatory Orders Medication Instructions Recorded Meclizine [Meclizine*] 25 mg PO TID PRN #10 tab 10/14/14 Ondansetron ODT [Zofran ODT] 4 mg PO Q8H PRN #20 odt 03/24/15 Cephalexin [Keflex] 500 mg PO Q6 #28 cap 07/13/15 Sulfamethoxazole/Trimethoprim 2 tab PO BID #28 tab 07/13/15 [Bactrim DS 800 mg-160 mg] Famotidine [Pepcid] 20 mg PO BID #8 tab 08/07/15 Prednisone 40 mg PO DAILY #8 tablet 08/07/15 Ibuprofen [Advil Liqui-Gels] 2 tab PO Q8 PRN #0 capsule 11/30/15 oxyCODONE/Acetaminophen [Percocet 1 ea PO Q6 PRN #10 tab 11/30/15 5/325 mg Tab] Ondansetron [Zofran] 4 mg PO Q8H PRN #30 tab 02/26/16 Nitrofurantoin Macrocrystals 100 mg PO BID #14 cap 05/03/17 [Macrobid] Azithromycin [Z-Freddie] 250 mg PO ASDIR #6 tab 12/17/17 - Allergies Allergies/Adverse Reactions: Allergies Allergy/AdvReac Type Severity Reaction Status Date / Time sesame seed Allergy RASH Verified 12/04/17 12:46 Review of Systems ROS Statement: Except As Marked, All Systems Reviewed And Found Negative Constitutional: Negative for: Fever, Chills Cardiovascular: Negative for: Chest Pain Respiratory: Positive for: Cough (dry). Negative for: Shortness of Breath Physical Exam - Reviewed Nursing Documentation Reviewed: Yes Vital Signs Reviewed: Yes - Physical Exam Appears: Positive for: Well, Non-toxic, No Acute Distress Head Exam: Positive for: ATRAUMATIC, NORMAL INSPECTION, NORMOCEPHALIC Skin: Positive for: Normal Color Eye Exam: Positive for: Normal appearance ENT: Positive for: Normal ENT Inspection Neck: Positive for: Normal Cardiovascular/Chest: Positive for: Regular Rate, Rhythm, Chest Non Tender Respiratory: Positive for: Normal Breath Sounds. Negative for: Wheezing, Respiratory Distress Gastrointestinal/Abdominal: Positive for: Normal Exam, Soft. Negative for: Tenderness Extremity: Positive for: Normal ROM (upper/lower) Neurologic/Psych: Positive for: Alert (x3), Oriented. Negative for: Motor/ Sensory Deficits - Laboratory Results Result Diagrams: 12/17/17 02:10 12/17/17 02:10 - ECG O2 Sat by Pulse Oximetry: 96 (RA) Pulse Ox Interpretation: Normal Medical Decision Making Medical Decision Making: Initial Impression: Pneumonia Initial Plan: * CXR * Accucheck ---CXR (12/04/17) FINDINGS: LUNGS: Minor bibasilar atelectasis and/or scarring. Developing lower lobe infiltrates could be excluded with followup radiographs. Persistent elevation right hemidiaphragm possibly due to eventration. PLEURA: No significant pleural effusion identified. No pneumothorax apparent. CARDIOVASCULAR: Normal. OSSEOUS STRUCTURES: No significant abnormalities. VISUALIZED UPPER ABDOMEN: Normal. OTHER FINDINGS: None. IMPRESSION: Minor bibasilar atelectasis and/or scarring. Developing lower lobe infiltrates could be excluded with followup radiographs. . Persistent elevation right hemidiaphragm possibly due to eventration. Time: 0007 --Accucheck: 336 Time: 015 --CXR: left lower lobe opacity noted. --CT chest and labs additionally ordered to r/o mass, infiltrates. Time: --CT Chest FINDINGS: Lungs: Mild atelectasis or scar in the bases, greatest in the right lower lobe and question of minimal patchy ground glass infiltrates. Pleural space: Normal. No pneumothorax. No pleural effusion. Heart: Coronary artery calcifications are present. Pulmonary arteries: The main pulmonary artery measures 26 mm. No central pulmonary embolism is identified. Aorta: The ascending thoracic aorta measures 28 mm. Other arteries: The left vertebral artery originates directly from the arch. Lymph nodes: Unremarkable. No enlarged lymph nodes. Bones/joints: Unremarkable. No acute fracture. Soft tissues: Unremarkable. Gallbladder and bile ducts: There is a gallstone in the gallbladder measuring 5 mm. Other findings: Slight anterior wedge configuration of T6 which appears to be chronic. IMPRESSION: 1. Mild atelectasis or scarring bases, greatest in right lower lobe and question of minimal patchy ground glass infiltrates bilaterally. 2. Cholelithiasis. 3. Otherwise negative CT chest. No central pulmonary embolism is identified. Airvisits. Follow up with PCP within 1 week. Scribe Attestation: Documented by Isa Preston, acting as a scribe for Yohannes Ordonez MD. Provider Scribe Attestation: All medical record entries made by the Scribe were at my direction and personally dictated by me. I have reviewed the chart and agree that the record accurately reflects my personal performance of the history, physical exam, medical decision making, and the department course for this patient. I have also personally directed, reviewed, and agree with the discharge instructions and disposition. Disposition - Clinical Impression Clinical Impression: Pneumonia - Patient ED Disposition Is Patient to be Admitted: No Doctor Will See Patient In The: Office Counseled Patient/Family Regarding: Studies Performed, Diagnosis, Need For Followup - Disposition Disposition: Routine/Home Disposition Time: 05:30 Condition: GOOD Additional Instructions: Take your medications as instructed. Follow up with your PCP in 2-3 days. Prescriptions: Azithromycin [Z-Freddie] 250 mg PO ASDIR #6 tab Instructions: Pneumonia in Adults Forms: [facility] (Luxembourgish) Print Language: GAMBIAN
[2017-12-17 02:16] LABS: BASO # 0.1 K/uL (0.0-0.2); EOS # 0.2 K/uL (0.0-0.7); HEMOGLOBIN 13.2 g/dL (12.0-16.0); MONO # 0.6 K/uL (0.0-0.8); NEUT # 2.7 K/uL (1.8-7.0)
[2017-12-17 02:19] LABS: BASO % 1.2 % (0.0-2.0); EOS % 3.4 % (0.0-4.0); LYMPH # 2.8 K/uL (1.0-4.3); LYMPH % 42.9 % (20.0-40.0); MEAN CELL VOLUME 85.8 fl (81.0-99.0); MEAN CORPUSCULAR HEMOGLOBIN 28.3 pg (27.0-31.0); MEAN PLATELET VOLUME 10.4 fl (7.2-11.7); MONO % 9.9 % (0.0-10.0); NEUT % 42.6 % (50.0-75.0); NRBC % 0.1 % (0.0-0.0); RBC 4.66 Mil/uL (3.80-5.20); WHITE BLOOD COUNT 6.4 K/uL (4.8-10.8)
[2017-12-17 02:20] LABS: BLOOD UREA NITROGEN 8 mg/dl (7-17); CALCIUM 9.1 mg/dL (8.4-10.2); GFR NON-AFRICAN AMERICAN > 60
[2017-12-17] MEDS ORDERED: Sodium Chloride 0.9% 50 ML IV ONE (02:28)
[2017-12-17] MEDS ORDERED: Iohexol 300 100 ML IJ ONE (02:28)
[2017-12-17 03:30] VITALS: RESP 18
[2017-12-17 06:16] VITALS: BP 127/80; PULSE 78; TEMP 98.2
--- NOTE | 2017-12-17 10:26 | RAD ---
Date of service: 12/17/2017 HISTORY: follow up COMPARISON: Chest radiograph dated 12/04/2017 TECHNIQUE: Chest PA and lateral FINDINGS: LUNGS: No active pulmonary disease. PLEURA: No significant pleural effusion identified. No pneumothorax apparent. CARDIOVASCULAR: Atherosclerotic aortic calcifications. Cardiomediastinal silhouette stably prominent. OSSEOUS STRUCTURES: Unchanged. VISUALIZED UPPER ABDOMEN: Normal. OTHER FINDINGS: None. IMPRESSION: No active disease.
--- NOTE | 2017-12-17 10:32 | CT ---
Date of service: 12/17/2017 PROCEDURE: CT Chest with contrast HISTORY: left lower lobe opacity, cough for 1 month COMPARISON: None. TECHNIQUE: Contiguous axial images were obtained through the chest with intravenous contrast enhancement. Sagittal and coronal reconstructions were performed. IV contrast: 95 mL Omnipaque 300 Radiation dose (DLP): 416.7 mGy-cm. This CT exam was performed using one or more of the following dose reduction techniques: Automated exposure control, adjustment of the mA and/or kV according to patient size, and/or use of iterative reconstruction technique. FINDINGS: LUNGS: Right lower lobe and lingular subsegmental atelectasis. Visualized airway clear. MEDIASTINUM: Unremarkable thoracic aorta. No aneurysm or dissection. Cardiomegaly. Main pulmonary artery unremarkable. No vascular congestion. No lymphadenopathy. PLEURA: No pleural fluid. No pneumothorax. BONES: No fracture. No destructive lesion. UPPER ABDOMEN: Partially imaged cholelithiasis without gallbladder wall thickening. Small hiatal hernia. OTHER FINDINGS: None. IMPRESSION: Unremarkable contrast enhanced CT of the chest.
[2017-12-17 19:25] VITALS: O2SAT 96
== END 2017-12-17 06:16 | disposition home or self-care (01) ==
LOC: H.ER 23:17
DX: J18.9 Pneumonia, unspecified organism (principal); E11.9 Type 2 diabetes mellitus without complications; I10 Essential (primary) hypertension; K80.20 Calculus of gallbladder without cholecystitis without obstruction
CPT/HCPCS: 71046; 71260; 80048; 82948; 85025; 99282; Q9967

== ENCOUNTER 2018-03-23 16:49 | Inpatient (IN) | payer MEDICAID ==
[2018-03-23 16:50] VITALS: BMI 31.8
[2018-03-23] MEDS ORDERED: Sodium Chloride 0.9% 1,000 ML IV STA ×2 (18:07)
[2018-03-23 18:15] LABS: VENOUS BLOOD GAS BASE EXCESS 1.7 mmol/L (0.0-2.0); VENOUS BLOOD GAS PCO2 42 mmHg (40-60); VENOUS BLOOD GAS PO2 42 mm/Hg (30-55); VENOUS BLOOD PH 7.41 (7.32-7.43)
[2018-03-23 18:34] LABS: ALB/GLOB RATIO 0.7 (1.0-2.1); BLOOD UREA NITROGEN 19 mg/dl (7-17); CALCIUM 9.8 mg/dL (8.4-10.2); GFR NON-AFRICAN AMERICAN > 60; LIPASE 79 U/L (23-300)
--- NOTE | 2018-03-23 18:38 | ED PDOC ---
HPI: Headache Time Seen by Provider: 03/23/18 17:50 Chief Complaint (Nursing): Headache Chief Complaint (Provider): Headache History Per: Patient History/Exam Limitations: no limitations Onset/Duration Of Symptoms: Days (x2) Additional Complaint(s): Patient is a 62 y/o female who presents to the ED complaining of dizziness and headache for x2 days. Patient reports that yesterday she felt like she had palpitations but she denies chest pain or shortness of breath. Today, when she woke up, she felt like the right side of her face was drooping. She thought symptoms would get better but when they didn't she came to the ED this evening. She denies change in vision but does report feeling slightly confused. She denies ear pain, change in hearing, slurred speech, nausea, vomiting, fever. She cannot remember what medications she stakes but knows she has diabetes. Past Medical History Reviewed: Historical Data, Nursing Documentation, Vital Signs Vital Signs: Last Vital Signs Temp 97.6 F 03/23/18 16:53 Pulse 92 H 03/23/18 16:53 Resp 18 03/23/18 16:53 BP 133/80 03/23/18 16:53 Pulse Ox 96 03/23/18 16:53 - Medical History PMH: Diabetes, HTN Denies: Hyperthyroidism, Hypothyroidism - Surgical History Surgical History: - Family History Family History: States: Unknown Family Hx, Diabetes - Home Medications Home Medications: Ambulatory Orders Medication Instructions Recorded ARIPiprazole [Abilify] 2 mg PO HS 03/23/18 Alogliptin Benzoate [Alogliptin] 25 mg PO DAILY 03/23/18 Amlodipine Besylate/Benazepril 1 cap PO DAILY 03/23/18 [Lotrel 5-20 mg Capsule] DULoxetine [Cymbalta] 30 mg PO HS 03/23/18 Ergocalciferol (Vitamin D2) 50,000 unit PO MO 03/23/18 [Vitamin D2] Folic Acid 1 mg PO DAILY 03/23/18 Furosemide [Lasix] 40 mg PO DAILY 03/23/18 Insulin Detemir [Levemir] 50 unit SC HS 03/23/18 Insulin Lispro Mix 75/25 [HumaLOG 50 mg SC BID 03/23/18 Mix 75/25] Memantine [Namenda] 5 mg PO DAILY 03/23/18 Multivitamin [Multi-Vitamin Daily] 1 tab PO DAILY 03/23/18 - Allergies Allergies/Adverse Reactions: Allergies Allergy/AdvReac Type Severity Reaction Status Date / Time sesame seed Allergy RASH Verified 03/23/18 16:53 Review of Systems ROS Statement: Except As Marked, All Systems Reviewed And Found Negative Constitutional: Negative for: Fever ENT: Positive for: Other (change in hearing). Negative for: Ear Pain Gastrointestinal: Negative for: Nausea, Vomiting Neurological: Positive for: Confusion, Headache, Dizziness. Negative for: Change in Speech Physical Exam - Reviewed Nursing Documentation Reviewed: Yes Vital Signs Reviewed: Yes - Physical Exam Appears: Positive for: No Acute Distress Head Exam: Positive for: ATRAUMATIC, NORMOCEPHALIC. Negative for: NORMAL INSPECTION (right sided upper and lower facial weakness visible with eyebrow raise, showing teeth, and puffing cheeks. No abnormalities to left sided cranial nerves) Skin: Positive for: Normal Color Eye Exam: Negative for: Normal appearance (right sided ptosis with right eye unable to fully open or fully close) Cardiovascular/Chest: Positive for: Regular Rate, Rhythm. Negative for: Murmur Respiratory: Positive for: Normal Breath Sounds. Negative for: Respiratory Distress Gastrointestinal/Abdominal: Positive for: Normal Exam, Soft. Negative for: Tenderness Extremity: Positive for: Normal ROM, Other (5/5 strength to all extremities). Negative for: Pedal Edema, Deformity Neurologic/Psych: Positive for: Alert, Oriented, Other (proprioception intact). Negative for: Motor/Sensory Deficits - Laboratory Results Result Diagrams: 03/23/18 16:56 - ECG O2 Sat by Pulse Oximetry: 96 (RA) Pulse Ox Interpretation: Normal Medical Decision Making Medical Decision Making: Time: 18:02 Initial Impression: Workup for Lepe's Palsy versus CVA Cardiac workup due to reported palpitations Initial Plan: VBG CT Head EKG CMP CRP Lipase Troponin CBC w/ diff ESR PTT Prothrombin time Reassess Scribe Attestation: Documented by Benjamin Mata acting as a scribe for Siobhan Stovall MD Provider Scribe Attestation: All medical record entries made by the Scribe were at my direction and personally dictated by me. I have reviewed the chart and agree that the record accurately reflects my personal performance of the history, physical exam, medical decision making, and the department course for this patient. I have also personally directed, reviewed, and agree with the discharge instructions and disposition. Disposition - Disposition
[2018-03-23 18:40] LABS: BASO # 0.1 K/uL (0.0-0.2); BASO % 1.2 % (0.0-2.0); EOS # 0.1 K/uL (0.0-0.7); EOS % 1.6 % (0.0-4.0); HEMOGLOBIN 13.2 g/dL (12.0-16.0); LYMPH # 2.7 K/uL (1.0-4.3); LYMPH % 37.7 % (20.0-40.0); MEAN CORPUSCULAR HEMOGLOBIN 28.6 pg (27.0-31.0); MEAN CORPUSCULAR HGB CONC 32.9 g/dL (33.0-37.0); MEAN PLATELET VOLUME 10.5 fl (7.2-11.7); MONO # 0.6 K/uL (0.0-0.8); MONO % 7.9 % (0.0-10.0); NEUT # 3.6 K/uL (1.8-7.0); NEUT % 51.6 % (50.0-75.0); NRBC % 0.1 % (0.0-0.0); RBC 4.62 Mil/uL (3.80-5.20); RED CELL DISTRIBUTION WIDTH 15.2 % (11.5-14.5)
[2018-03-23 18:44] LABS: INR 1.2; PROTHROMBIN TIME 13.5 Seconds (9.8-13.1)
--- NOTE | 2018-03-23 18:46 | CT ---
Date of service: 03/23/2018 PROCEDURE: CT HEAD WITHOUT CONTRAST. HISTORY: dizziness and left sided facial droop COMPARISON: Noncontrast head CT performed 10/13/14 TECHNIQUE: Axial computed tomography images were obtained through the head/brain without intravenous contrast. Radiation dose: Total exam DLP = 756.89 mGy-cm. This CT exam was performed using one or more of the following dose reduction techniques: Automated exposure control, adjustment of the mA and/or kV according to patient size, and/or use of iterative reconstruction technique. FINDINGS: Streak artifact obscures evaluation of the skull base HEMORRHAGE: No intracranial hemorrhage. BRAIN: No mass effect or edema. Intracranial atherosclerosis. Chronic re-identified small lacunar infarct, brainstem. Evidence of chronic infarct involving the left cerebellum. Scattered periventricular and subcortical white matter hypodensities, which are nonspecific, but often seen with chronic microvascular ischemic disease. Please note that MRI with diffusion imaging is more sensitive in the detection of acute ischemic event. VENTRICLES: No hydrocephalus. CALVARIUM: Unremarkable. PARANASAL SINUSES: Unremarkable as visualized. No significant inflammatory changes. MASTOID AIR CELLS: Partial opacification/fluid involving the right greater than left mastoid air cells; correlate for history of mastoiditis. OTHER FINDINGS: None. IMPRESSION: Nonspecific white matter changes. Re-identified chronic lacunar infarct, brainstem. Evidence of chronic infarct involving the left cerebellum. Intracranial atherosclerosis. Please note that MRI with diffusion imaging is more sensitive in the detection of acute ischemic event. Partial opacification/fluid involving the right greater than left mastoid air cells; correlate clinically for mastoiditis.
[2018-03-23 18:47] LABS: PARTIAL THROMBOPLASTIN TIME 37.7 Seconds (25.6-37.1)
[2018-03-23 18:59] LABS: SQUAMOUS EPITHIAL 11 /hpf (0-5); URINE BACTERIA RARE (<OCC); URINE BILIRUBIN NEGATIVE (NEGATIVE); URINE BLOOD NEGATIVE (NEGATIVE); URINE CLARITY CLOUDY (Clear); URINE COLOR AMBER (YELLOW); URINE GLUCOSE (UA) >=500 mg/dL (Normal); URINE LEUKOCYTE ESTERASE SMALL Leu/uL (Negative); URINE PROTEIN 30 mg/dL (NEGATIVE)
--- NOTE | 2018-03-23 19:16 | RAD ---
Date of service: 03/23/2018 HISTORY: possible admission COMPARISON: Chest radiograph dated 12/17/2017. FINDINGS: LUNGS: No active pulmonary disease. PLEURA: No significant pleural effusion identified, no pneumothorax apparent. CARDIOVASCULAR: Aortic atherosclerotic calcifications. Cardiomediastinal silhouette stably enlarged. OSSEOUS STRUCTURES: Unchanged. VISUALIZED UPPER ABDOMEN: Normal. OTHER FINDINGS: None. IMPRESSION: No active disease.
[2018-03-23] MEDS ORDERED: Acyclovir 400 MG in Sodium Chloride 0.9% 100 ML IV STA (19:31)
--- NOTE | 2018-03-23 19:46 | ED PDOC ---
- Laboratory Results Result Diagrams: 03/23/18 18:29 03/23/18 18:56 - ECG O2 Sat by Pulse Oximetry: 100 (RA) Pulse Ox Interpretation: Normal Medical Decision Making Medical Decision Making: Time: 19:00 Patient care endorsed from Dr. Stovall to Dr. Bertrand pending reevaluation and discharge home if pt feeling better. Time: 18:28 CXR FINDINGS: LUNGS: No active pulmonary disease. PLEURA: No significant pleural effusion identified, no pneumothorax apparent. CARDIOVASCULAR: Aortic atherosclerotic calcifications. Cardiomediastinal silhouette stably enlarged. OSSEOUS STRUCTURES: Unchanged. VISUALIZED UPPER ABDOMEN: Normal. OTHER FINDINGS: None. IMPRESSION: No active disease. Time: 18:43 CT head FINDINGS: Streak artifact obscures evaluation of the skull base HEMORRHAGE: No intracranial hemorrhage. BRAIN: No mass effect or edema. Intracranial atherosclerosis. Chronic re-identified small lacunar infarct, brainstem. Evidence of chronic infarct involving the left cerebellum. Scattered periventricular and subc ortical white matter hypodensities, which are nonspecific, but often seen with chronic microvascular ischemic disease. Please note that MRI with diffusion imaging is more sensitive in the detection of acute ischemic event. VENTRICLES: No hydrocephalus. CALVARIUM: Unremarkable. PARANASAL SINUSES: Unremarkable as visualized. No significant inflammatory changes. MASTOID AIR CELLS: Partial opacification/fluid involving the right greater than left mastoid air cells; correlate for history of mastoiditis. OTHER FINDINGS: None. IMPRESSION: Nonspecific white matter changes. Re-identified chronic lacunar infarct, brainstem. Evidence of chronic infarct involving the left cerebellum. Intracra nial atherosclerosis. Please note that MRI with diffusion imaging is more sensitive in the detection of acute ischemic event. Partial opacification/fluid involving the right greater than left mastoid air cells; correlate clinically for mastoiditis. Time: 21:43 CT Mastoid FINDINGS: RIGHT OSSICLES AND MIDDLE EAR: The ossicles are intact. No middle ear fluid. RIGHT COCHLEA: Normal 2-1/2 turns. RIGHT VESTIBULE: Unremarkable. RIGHT SEMICIRCULAR CANALS: No dehiscence. RIGHT VESTIBULAR AND COCHLEAR AQUEDUCTS: No enlargement. RIGHT FACIAL NERVE CANAL: No widening. RIGHT INTERNAL AUDITORY CANAL: No enlargement. RIGHT EXTERNAL AUDITORY CANAL: Patent. RIGHT CAROTID CANAL: No aberrancy. RIGHT JUGULAR FORAMEN: Asymmetrically enlarged right jugular bulb is seen, which is a normal congenital variant. RIGHT MASTOID AIR CELLS: Partial sclerosis and opacification involving the right mastoid air cells consistent with chronic mastoiditis. RIGHT TEMPOROMANDIBULAR JOINT: No dislocation. LEFT OSSICLES AND MIDDLE EAR: The ossicles are intact. No middle ear fluid. LEFT COCHLEA: Normal 2-1/2 turns. LEFT VESTIBULE: Unremarkable. LEFT SEMICIRCULAR CANALS: No dehiscence. LEFT VESTIBULAR AND COCHLEAR AQUEDUCTS: No enlargement. LEFT FACIAL NERVE CANAL: No widening. LEFT INTERNAL AUDITORY CANAL: No enlargement. LEFT EXTERNAL AUDITORY CANAL: Patent. LEFT CAROTID CANAL: No aberrancy. LEFT JUGULAR FORAMEN: No enlargement. LEFT MASTOID AIR CELLS: Clear. LEFT TEMPOROMANDIBULAR JOINT: No dislocation. BONES: No acute osseous abnormality. VISUALIZED PARANASAL SINUSES: Clear. PERIAURICULAR SOFT TISSUES: Unremarkable. IMPRESSION: Partial sclerosis and opacification involving the right mastoid air cells consistent with chronic mastoiditis. Asymmetrically enlarged right jugular bulb is seen, which is a normal congenital variant. Time: 22:41 imaging and labs noted Upon provider reevaluation patient is feeling better. however on reeval of the neuro exam, pt reveals only lower facial paralysis on the R side, not the upper facial paralysis which is not consistent with bells palsy.. therefore will admit pt for stroke workup. Pt is a pt of Dr Cox, covered by Dr Beltre. will admit. spoke w dr peralta who covers dr beltre and will admit. ordered swallow exam and did an NIH Stroke scale. ordered ASA. neuro consult placed as per dr peralta for dr trujillo/ Scribe Attestation: Documented by Benjamin Mata acting as a scribe for Katarina Bertrand MD. Provider Scribe Attestation: All medical record entries made by the Scribe were at my direction and personally dictated by me. I have reviewed the chart and agree that the record accurately reflects my personal performance of the history, physical exam, medical decision making, and the department course for this patient. I have also personally directed, reviewed, and agree with the discharge instructions and disposition. Disposition Counseled Patient/Family Regarding: Studies Performed, Diagnosis - Clinical Impression Clinical Impression: Facial weakness - POA Present On Arrival: None - Disposition Disposition: Routine/Home Disposition Time: 22:41 Condition: IMPROVED Additional Instructions: Follow up with primary medical doctor. Take medications as prescribed. Follow up with eye doctor. Return to the emergency department if symptoms worsen. Prescriptions: Carboxymethylcellulose Sodium [Lubricant Dry Eye Relief] 15 ml OP Q2 #1 drp.lq.gel RX: Prednisone [Deltasone] 60 mg PO DAILY 7 Days tablet RX: valACYclovir [Valtrex] 1 gm PO TID 10 Days tab Print Language: AFGHAN NIHSS Stroke Scale - Date/Time Evaluation Performed Date Performed: 03/23/18 Time Performed: 23:11 When Was NIHSS Performed: Baseline - How Severe is the Stoke Level of Consciousness: 0=Alert LOC to Questions: 0=Both comments correct Best Gaze: 0=Normal Visual: 0=No visual loss Facial: 2=Partial (lower face paralysis) Motor Arm - Left: 0=No drift Motor Arm - Right: 0=No drift Motor Leg - Left: 0=No drift Motor Leg - Right: 0=No drift Limb Ataxia: 0=Absent Sensory: 0=Normal Best Language: 0=No aphasia Dysarthia: 0=Normal articulation Extinction & Inattention (Neglect): 0=Normal, no object Severity Of Stroke: 1-4= Minor Stroke
[2018-03-23 19:57] LABS: ALBUMIN 3.9 g/dL (3.5-5.0); ALT/SGPT 62 U/L (9-52); AST/SGOT 95 U/L (14-36)
[2018-03-23] MEDS ORDERED: Iohexol 300 100 ML IJ ONE (20:01)
[2018-03-23] MEDS ORDERED: Sodium Chloride 0.9% 0 ML IV ONE (20:01)
[2018-03-24] MEDS ORDERED: Insulin Regular 100 units/ml SC STA (01:36)
[2018-03-24] MEDS ORDERED: Insulin Regular 100 units/ml ONE (01:47)
[2018-03-24] MEDS ORDERED: Insulin Lispro Mix 75/25 100 units/ml (HumaLog) 10ml SC SCH (09:00)
[2018-03-24] MEDS ORDERED: BENAZEPRIL PO SCH (09:00)
[2018-03-24] MEDS ORDERED: AMLODIPINE BESYLATE PO SCH (09:00)
[2018-03-24] MEDS: Multivitamin With Minerals Tab PO SCH (09:23)
--- NOTE | 2018-03-24 11:17 | CT ---
Date of service: 03/23/2018 PROCEDURE: CT OF THE TEMPORAL BONES WITHOUT CONTRAST HISTORY: possible mastoiditis COMPARISON: None available. TECHNIQUE: High resolution axial images of the temporal bones were obtained. Coronal and sagittal reformats were generated. Radiation dose: Total exam DLP = 661.33 mGy-cm. This CT exam was performed using one or more of the following dose reduction techniques: Automated exposure control, adjustment of the mA and/or kV according to patient size, and/or use of iterative reconstruction technique. FINDINGS: RIGHT TEMPORAL BONE: RIGHT MIDDLE EAR: Normal appearing ossicular chain, aeration and development. No soft tissue or fluid collection. The oval and round window niches appear intact. RIGHT INNER EAR: Cochlea: Normal density and development. Semicircular canals: Normal density and development. RIGHT MASTOID AIR CELLS: Well aerated and developed. No destructive changes appreciated. RIGHT INTERNAL AUDITORY CANAL: Normal in course, caliber, contour and development. RIGHT EXTERNAL AUDITORY CANAL: Normal in course, caliber, contour, development and aeration. RIGHT VESTIBULAR AND COCHLEAR AQUEDUCT: Normal. OTHER FINDINGS: None. LEFT TEMPORAL BONE: LEFT MIDDLE EAR: Normal appearing ossicular chain, aeration and development. No soft tissue or fluid collection. The oval and round window niches appear intact. LEFT INNER EAR: Cochlea: Normal density and development. Semicircular canals: Normal density and development. LEFT MASTOID AIR CELLS: Well aerated and developed. No destructive changes appreciated. LEFT INTERNAL AUDITORY CANAL: Normal in course, caliber, contour and development. LEFT EXTERNAL AUDITORY CANAL: Normal in course, caliber, contour, development and aeration. LEFT VESTIBULAR AND COCHLEAR AQUEDUCTS: Normal. OTHER FINDINGS: None. IMPRESSION: Unremarkable non contrast enhanced CT of the temporal bones.
--- NOTE | 2018-03-24 12:11 | CP.PCM.HP ---
History of Present Illness - History of Present Illness History of Present Illness: 62 y/o F presented to ED c/o right sided facial weakness that began yesterday morning. Pt reports having headache and dizziness the previous days. Pt endorses she had a similar episode of facial hemiparesis 5 years ago. Pt was following a neurologist but specific etiology was reported to her. --Today, pt was seen abd evaluated with Dr Perez by bedside. Pt reports feeling OK, still has dropping on her right eyelid. Pt denies visual disturbances, headache, hearing deficit, hyperacusis, dizziness, chest pain. PMD: Dr. Courtney Cox Present on Admission - Present on Admission Any Indicators Present on Admission: No Review of Systems - Constitutional Constitutional: absent: Chills, Fatigue, Fever - EENT Eyes: absent: Blurred Vision, Change in Vision Ears: absent: Ear Discharge, Ear Pain Nose/Mouth/Throat: absent: Nasal Congestion, Sinus Pressure, Sore Throat - Cardiovascular Cardiovascular: absent: Chest Pain, Dyspnea, Palpitations - Respiratory Respiratory: absent: Cough, Dyspnea, Wheezing, Change in Mucous Color - Gastrointestinal Gastrointestinal: absent: Abdominal Pain - Genitourinary Genitourinary: absent: Dysuria, Hematuria Past Patient History - Infectious Disease Hx of Infectious Diseases: None - Past Medical History & Family History Past Medical History?: Yes - Past Social History Smoking Status: Never Smoked - CARDIAC Hx Cardiac Disorders: Yes Hx Hypertension: Yes - PULMONARY Hx Respiratory Disorders: No - NEUROLOGICAL Hx Neurological Disorder: No - HEENT Hx HEENT Problems: No - RENAL Hx Chronic Kidney Disease: No - ENDOCRINE/METABOLIC Hx Endocrine Disorders: Yes (DM II; takes insulin) Hx Diabetes Mellitus Type 2: Yes - HEMATOLOGICAL/ONCOLOGICAL Hx Blood Disorders: No Hx AIDS: No Hx Human Immunodeficiency Virus (HIV): No - INTEGUMENTARY Hx Dermatological Problems: No - MUSCULOSKELETAL/RHEUMATOLOGICAL Hx Musculoskeletal Disorders: No Hx Falls: Yes - GASTROINTESTINAL Hx Gastrointestinal Disorders: No - GENITOURINARY/GYNECOLOGICAL Hx Genitourinary Disorders: No - PSYCHIATRIC Hx Psychophysiologic Disorder: No Hx Substance Use: No - SURGICAL HISTORY Hx Surgeries: Yes Hx Section: Yes (x 1) Hx Hysterectomy: Yes Other/Comment: breast reduction - ANESTHESIA Hx Anesthesia: Yes Hx Anesthesia Reactions: No Hx Malignant Hyperthermia: No Meds Home Medications: Home Medication List Medication Instructions Recorded Confirmed Type Carboxymethylcellulose Sodium 15 ml OP Q2 #1 drp.lq.gel 03/23/18 Rx [Lubricant Dry Eye Relief] Prednisone [Deltasone] 60 mg PO DAILY 7 Days tablet 03/23/18 Rx valACYclovir [Valtrex] 1 gm PO TID 10 Days tab 03/23/18 Rx Allergies/Adverse Reactions: Allergies Allergy/AdvReac Type Severity Reaction Status Date / Time sesame seed Allergy RASH Verified 03/23/18 16:53 Physical Exam - Constitutional Appears: No Acute Distress - Head Exam Head Exam: ATRAUMATIC, NORMAL INSPECTION Additional comments: Presence of weakness of upper and lower facial muscles on right side. Presence of prominent right ptosis. SILT b/l on face and head. - Eye Exam Eye Exam: EOMI - ENT Exam ENT Exam: Mucous Membranes Moist - Neck Exam Neck exam: Positive for: Full Rom, Normal Inspection - Respiratory Exam Respiratory Exam: Clear to Auscultation Bilateral, NORMAL BREATHING PATTERN - Cardiovascular Exam Cardiovascular Exam: REGULAR RHYTHM, +S1, +S2 - GI/Abdominal Exam GI & Abdominal Exam: Normal Bowel Sounds, Soft. absent: Distended, Guarding, Tenderness - Back Exam Back exam: absent: CVA tenderness (L), CVA tenderness (R) - Neurological Exam Neurological exam: Alert, Oriented x3 Results - Vital Signs Recent Vital Signs: Last Vital Signs Temp 97.5 F L 03/24/18 11:53 Pulse 74 03/24/18 11:53 Resp 18 03/24/18 11:53 BP 147/85 03/24/18 11:53 Pulse Ox 97 03/24/18 11:53 - Labs Result Diagrams: 03/23/18 18:29 03/23/18 18:56 Labs: Laboratory Results - last 24 hr 03/23/18 03/23/18 03/23/18 16:56 17:51 18:12 WBC RBC Hgb Hct MCV MCH MCHC RDW Plt Count MPV Neut % (Auto) Lymph % (Auto) [place] % (Auto) Eos % (Auto) Baso % (Auto) Neut # (Auto) Lymph # (Auto) [place] # (Auto) Eos # (Auto) Baso # (Auto) ESR PT 13.5 H INR 1.2 APTT 37.7 H pO2 42 VBG pH 7.41 VBG pCO2 42 VBG HCO3 25.7 VBG Total CO2 27.9 VBG O2 Sat (Calc) 81.9 H VBG Base Excess 1.7 VBG Potassium 3.9 Sodium 137.0 Chloride 104.0 Glucose 339 H Lactate 2.0 FiO2 21.0 Potassium Carbon Dioxide Anion Gap BUN Creatinine Est GFR ( Amer) Est GFR (Non-Af Amer) POC Glucose (mg/dL) 314 H Random Glucose Calcium Total Bilirubin AST ALT Alkaline Phosphatase Troponin I Total Protein Albumin Globulin Albumin/Globulin Ratio Lipase Venous Blood Potassium 3.9 Urine Color Urine Clarity Urine pH Ur Specific [place] Urine Protein Urine Glucose (UA) Urine Ketones Urine Blood Urine Nitrate Urine Bilirubin Urine Urobilinogen Ur Leukocyte Esterase Urine RBC (Auto) Urine Microscopic WBC Ur Squamous Epith Cells Urine Bacteria Hyaline Casts 03/23/18 03/23/18 03/23/18 18:29 18:29 18:56 WBC 7.0 RBC 4.62 Hgb 13.2 Hct 40.2 MCV 87.0 MCH 28.6 MCHC 32.9 L RDW 15.2 H Plt Count 181 MPV 10.5 Neut % (Auto) 51.6 Lymph % (Auto) 37.7 [place] % (Auto) 7.9 Eos % (Auto) 1.6 Baso % (Auto) 1.2 Neut # (Auto) 3.6 Lymph # (Auto) 2.7 [place] # (Auto) 0.6 Eos # (Auto) 0.1 Baso # (Auto) 0.1 ESR 48 H PT INR APTT pO2 VBG pH VBG pCO2 VBG HCO3 VBG Total CO2 VBG O2 Sat (Calc) VBG Base Excess VBG Potassium Sodium 137 Chloride 102 Glucose Lactate FiO2 Potassium 4.2 Carbon Dioxide 22 Anion Gap 17 BUN 19 H Creatinine 0.4 L Est GFR ( Amer) > 60 Est GFR (Non-Af Amer) > 60 POC Glucose (mg/dL) Random Glucose 345 H Calcium 9.8 Total Bilirubin 0.6 AST 95 H D ALT 62 H Alkaline Phosphatase 112 Troponin I < 0.0120 Total Protein 9.7 H Albumin 3.9 Globulin 5.8 H Albumin/Globulin Ratio 0.7 L Lipase 79 Venous Blood Potassium Urine Color Tasha Urine Clarity Cloudy Urine pH 5.0 Ur Specific [place] 1.036 H Urine Protein 30 Urine Glucose (UA) >=500 Urine Ketones Negative Urine Blood Negative Urine Nitrate Negative Urine Bilirubin Negative Urine Urobilinogen 2.0 H Ur Leukocyte Esterase Small Urine RBC (Auto) 7 H Urine Microscopic WBC 7 H Ur Squamous Epith Cells 11 H Urine Bacteria Rare Hyaline Casts 3-5 H 03/24/18 03/24/18 00:51 06:23 WBC RBC Hgb Hct MCV MCH MCHC RDW Plt Count MPV Neut % (Auto) Lymph % (Auto) [place] % (Auto) Eos % (Auto) Baso % (Auto) Neut # (Auto) Lymph # (Auto) [place] # (Auto) Eos # (Auto) Baso # (Auto) ESR PT INR APTT pO2 VBG pH VBG pCO2 VBG HCO3 VBG Total CO2 VBG O2 Sat (Calc) VBG Base Excess VBG Potassium Sodium Chloride Glucose Lactate FiO2 Potassium Carbon Dioxide Anion Gap BUN Creatinine Est GFR ( Amer) Est GFR (Non-Af Amer) POC Glucose (mg/dL) 383 H 366 H Random Glucose Calcium Total Bilirubin AST ALT Alkaline Phosphatase Troponin I Total Protein Albumin Globulin Albumin/Globulin Ratio Lipase Venous Blood Potassium Urine Color Urine Clarity Urine pH Ur Specific [place] Urine Protein Urine Glucose (UA) Urine Ketones Urine Blood Urine Nitrate Urine Bilirubin Urine Urobilinogen Ur Leukocyte Esterase Urine RBC (Auto) Urine Microscopic WBC Ur Squamous Epith Cells Urine Bacteria Hyaline Casts Assessment & Plan - Assessment and Plan (Free Text) Assessment: 62 y/o f with a PMHx of DM and HTN admitted for evaluation and management of right facial hemiparesis. -Head CT: Chronic re-identified small lacunar infarct, brainstem. Evidence of chronic infarct involving the left cerebellum. PLAN: --Head CT reviewed. --HSV titers and Lyme titers ordered. --Home meds resumed. --Neurology consult, Dr Green. F/U recommendations --Continue management as ordered. Case discussed with Dr Perez. LUIS A Hdz PGY-2 - Date & Time Date: 03/24/18 Time: 11:00
--- NOTE | 2018-03-24 13:34 | CARD ---
APPROVED REPORT Date of service: 03/23/2018 EKG Measurement Heart [id number] <Conclusion> Normal sinus rhythm Left axis deviation Abnormal ECG
--- NOTE | 2018-03-24 14:22 | CP.PCM.CON ---
History of Present Illness - History of Present Illness History of Present Illness: Neurology Consultation Note: Mrs. Wells is a 62-year-old woman with a past medical history of DM, HTN, who presented with right sided facial weakness and difficulty with right eye opening that began two days ago. She states that her symptoms had started with headache and dizziness. She had a similar episode of right facial droop 5 years ago and was seen by a neurologist. CT scan of the head showed a chronic left pontine infarct and previous basal ganglia ischemia as well as intracranial atherosclerotic disease. Review of Systems - Constitutional Constitutional: As Per HPI - EENT Eyes: As Per HPI Ears: absent: As Per HPI, Decreased Hearing, Ear Discharge, Ear Pain, Tinnitus, Abnormal Hearing, Disequilibrium, Dizziness, Other Nose/Mouth/Throat: absent: As Per HPI, Epistaxis, Nasal Congestion, Nasal Discharge, Nasal Obstruction, Nasal Trauma, Nose Pain, Post Nasal Drip, Sinus Pain, Sinus Pressure, Bleeding Gums, Change in Voice, Dental Pain, Dry Mouth, Dysphagia, Halitosis, Hoarsness, Lip Swelling, Mouth Lesions, Mouth Pain, Odynophagia, Sore Throat, Throat Swelling, Tongue Swelling, Facial Pain, Neck Pain, Neck Mass, Other - Cardiovascular Cardiovascular: absent: As Per HPI, Acrocyanosis, Chest Pain, Chest Pain at Rest, Chest Pain with Activity, Claudication, Diaphoresis, Dyspnea, Dyspnea on Exertion, Edema, Irregular Heart Rhythm, Pain Radiating to Arm/Neck/Jaw, Leg Edema, Leg Ulcers, Lightheadedness, Orthopnea, Palpitations, Paroxysmal Nocturnal Dyspnea, Pedal Edema, Radiating Pain, Rapid Heart Rate, Slow Heart Rate, Syncope, Other - Respiratory Respiratory: absent: As Per HPI, Cough, Dyspnea, Hemoptysis, Dyspnea on Exertion, Wheezing, Snoring, Stridor, Pain on Inspiration, Chest Congestion, Excessive Mucous Production, Change in Mucous Color, Pain with Coughing, Other - Gastrointestinal Gastrointestinal: absent: As Per HPI, Abdominal Pain, Belching, Bloating, Change in Bowel Habits, Change in Stool Character, Coffee Ground Emesis, Constipation, Cramping, Diarrhea, Dyspepsia, Dysphagia, Early Satiety, Excessive Flatus, Fecal Incontinence, Heartburn, Hematemesis, Hematochezia, Loose Stools, Melena, Nausea, Odynophagia, Temesmus, Vomiting, Other - Genitourinary Genitourinary: absent: As Per HPI, Change in Urinary Stream, Difficulty Urinating, Dysuria, Flank Pain, Hematuria, Pyuria, Nocturia, Urinary Incontinence, Urinary Frequency, Urinary Hesitance, Urinary Urgency, Voiding Freq/Small Amts, Freq UTI, Hx Renal/Bladder Calculi, Hx /Renal Surgery, Bladder Distension, Other - Musculoskeletal Musculoskeletal: absent: As Per HPI, Abnormal Gait, Arthralgias, Atrophy, Back Pain, Deformity, Joint Swelling, Limited Range of Motion, Loss of Height, Muscle Cramps, Muscle Weakness, Myalgias, Neck Pain, Numbness, Radiating Pain into Limb, Stiffness, Tingling, Other - Integumentary Integumentary: absent: As Per HPI, Acne, Alopecia, Bleeding Lesions, Change in Hair, Change in Nails, Change in Pigmentation, Changing Lesions, Dry Skin, Erythema, Furuncle, Hirsutism, Lesions, New Lesions, Non-Healing Lesions, Photosensitivity, Pruritus, Rash, Skin Pain, Skin Ulcer, Sores, Striae, Swelling, Unusual Bruising, Wounds, Jaundice, Other - Neurological Neurological: As Per HPI - Psychiatric Psychiatric: absent: As Per HPI, Abnormal Sleep Pattern, Anhedonia, Anxiety, Auditory Hallucinations, Behavioral Changes, Change in Appetite, Change in Libido, Confusion, Depression, Difficulty Concentrating, Hallucinations, Homicidal Ideation, Hopelessness, Irritability, Memory Loss, Mood Swings, Panic Attacks, Paranoia, Suicidal Ideation, Visual Hallucinations, Tactile Hallucinations, Other - Endocrine Endocrine: absent: As Per HPI, Change in Body Appearance, Change in Libido, Cold Intolorance, Deepening of Voice, Excessive Sweating, Fatigue, Flushing, Heat Intolorance, Increase in Ring/Shoe/Hat Size, Palpitations, Polydipsia, Polyphagia, Polyuria, Other Past Patient History - Infectious Disease Hx of Infectious Diseases: None - Past Medical History & Family History Past Medical History?: Yes - Past Social History Smoking Status: Never Smoked - CARDIAC Hx Cardiac Disorders: Yes Hx Hypertension: Yes - PULMONARY Hx Respiratory Disorders: No - NEUROLOGICAL Hx Neurological Disorder: No - HEENT Hx HEENT Problems: No - RENAL Hx Chronic Kidney Disease: No - ENDOCRINE/METABOLIC Hx Endocrine Disorders: Yes (DM II; takes insulin) Hx Diabetes Mellitus Type 2: Yes - HEMATOLOGICAL/ONCOLOGICAL Hx Blood Disorders: No Hx AIDS: No Hx Human Immunodeficiency Virus (HIV): No - INTEGUMENTARY Hx Dermatological Problems: No - MUSCULOSKELETAL/RHEUMATOLOGICAL Hx Musculoskeletal Disorders: No Hx Falls: Yes - GASTROINTESTINAL Hx Gastrointestinal Disorders: No - GENITOURINARY/GYNECOLOGICAL Hx Genitourinary Disorders: No - PSYCHIATRIC Hx Psychophysiologic Disorder: No Hx Substance Use: No - SURGICAL HISTORY Hx Surgeries: Yes Hx Section: Yes (x 1) Hx Hysterectomy: Yes Other/Comment: breast reduction - ANESTHESIA Hx Anesthesia: Yes Hx Anesthesia Reactions: No Hx Malignant Hyperthermia: No Meds Home Medications: Home Medication List Medication Instructions Recorded Confirmed Type Carboxymethylcellulose Sodium 15 ml OP Q2 #1 drp.lq.gel 03/23/18 Rx [Lubricant Dry Eye Relief] Prednisone [Deltasone] 60 mg PO DAILY 7 Days tablet 03/23/18 Rx valACYclovir [Valtrex] 1 gm PO TID 10 Days tab 03/23/18 Rx Allergies/Adverse Reactions: Allergies Allergy/AdvReac Type Severity Reaction Status Date / Time sesame seed Allergy RASH Verified 03/23/18 16:53 - Medications Medications: Current Medications Aripiprazole (Abilify) 2 mg PO HS [facility] Duloxetine HCl (Cymbalta) 30 mg PO HS [facility] Ergocalciferol (Drisdol 50,000 Intl Units Cap) 1 cap PO MO [facility] Folic Acid (Folic Acid) 1 mg PO DAILY [facility] Last Admin: 03/24/18 09:21 Dose: 1 mg Furosemide (Lasix) 40 mg PO DAILY [facility] Last Admin: 03/24/18 09:22 Dose: 40 mg Insulin Detemir (Levemir) 50 units SC HS [facility] Insulin Lispro Protam/Lispro Human (Humalog Mix 75/25) units SC BID [facility] Memantine (Namenda) 5 mg PO DAILY [facility] Multivitamins/Minerals (Therapeutic-M Tab) 1 tab PO DAILY [facility] Last Admin: 03/24/18 09:23 Dose: 1 tab Sitagliptin Phosphate (Januvia) 100 mg PO DAILY [facility] Last Admin: 03/24/18 09:00 Dose: 100 mg Physical Exam - Constitutional Appears: Well - Head Exam Head Exam: ATRAUMATIC, NORMAL INSPECTION, NORMOCEPHALIC - Eye Exam Pupil Exam: Unequal Additional comments: unable to open right eye and has 3rd nerve palsy - ENT Exam ENT Exam: Mucous Membranes Moist, Normal Exam - Neck Exam Neck exam: Positive for: Normal Inspection - Respiratory Exam Respiratory Exam: Clear to Auscultation Bilateral, NORMAL BREATHING PATTERN - Cardiovascular Exam Cardiovascular Exam: REGULAR RHYTHM, +S1, +S2 - GI/Abdominal Exam GI & Abdominal Exam: Normal Bowel Sounds, Soft. absent: Tenderness - Rectal Exam Rectal Exam: Deferred - Extremities Exam Extremities exam: Positive for: normal inspection - Back Exam Back exam: NORMAL INSPECTION - Neurological Exam Neurological exam: Alert, Normal Gait, Oriented x3, Reflexes Normal Additional comments: CN 3 palsy on the right, and slight CN 7 palsy on the right. 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 - Psychiatric Exam Psychiatric exam: Normal Affect, Normal Mood Results - Vital Signs Recent Vital Signs: Last Vital Signs Temp 97.5 F L 03/24/18 11:53 Pulse 74 03/24/18 11:53 Resp 18 03/24/18 11:53 BP 147/85 03/24/18 11:53 Pulse Ox 97 03/24/18 11:53 - Labs Result Diagrams: 03/23/18 18:29 03/23/18 18:56 Labs: Laboratory Results - last 24 hr 03/23/18 03/23/18 03/23/18 16:56 17:51 18:12 WBC RBC Hgb Hct MCV MCH MCHC RDW Plt Count MPV Neut % (Auto) Lymph % (Auto) [place] % (Auto) Eos % (Auto) Baso % (Auto) Neut # (Auto) Lymph # (Auto) [place] # (Auto) Eos # (Auto) Baso # (Auto) ESR PT 13.5 H INR 1.2 APTT 37.7 H pO2 42 VBG pH 7.41 VBG pCO2 42 VBG HCO3 25.7 VBG Total CO2 27.9 VBG O2 Sat (Calc) 81.9 H VBG Base Excess 1.7 VBG Potassium 3.9 Sodium 137.0 Chloride 104.0 Glucose 339 H Lactate 2.0 FiO2 21.0 Potassium Carbon Dioxide Anion Gap BUN Creatinine Est GFR ( Amer) Est GFR (Non-Af Amer) POC Glucose (mg/dL) 314 H Random Glucose Calcium Total Bilirubin AST ALT Alkaline Phosphatase Troponin I C-Reactive Protein Total Protein Albumin Globulin Albumin/Globulin Ratio Lipase Venous Blood Potassium 3.9 Urine Color Urine Clarity Urine pH Ur Specific [place] Urine Protein Urine Glucose (UA) Urine Ketones Urine Blood Urine Nitrate Urine Bilirubin Urine Urobilinogen Ur Leukocyte Esterase Urine RBC (Auto) Urine Microscopic WBC Ur Squamous Epith Cells Urine Bacteria Hyaline Casts 03/23/18 03/23/18 03/23/18 18:29 18:29 18:56 WBC 7.0 RBC 4.62 Hgb 13.2 Hct 40.2 MCV 87.0 MCH 28.6 MCHC 32.9 L RDW 15.2 H Plt Count 181 MPV 10.5 Neut % (Auto) 51.6 Lymph % (Auto) 37.7 [place] % (Auto) 7.9 Eos % (Auto) 1.6 Baso % (Auto) 1.2 Neut # (Auto) 3.6 Lymph # (Auto) 2.7 [place] # (Auto) 0.6 Eos # (Auto) 0.1 Baso # (Auto) 0.1 ESR 48 H PT INR APTT pO2 VBG pH VBG pCO2 VBG HCO3 VBG Total CO2 VBG O2 Sat (Calc) VBG Base Excess VBG Potassium Sodium 137 Chloride 102 Glucose Lactate FiO2 Potassium 4.2 Carbon Dioxide 22 Anion Gap 17 BUN 19 H Creatinine 0.4 L Est GFR ( Amer) > 60 Est GFR (Non-Af Amer) > 60 POC Glucose (mg/dL) Random Glucose 345 H Calcium 9.8 Total Bilirubin 0.6 AST 95 H D ALT 62 H Alkaline Phosphatase 112 Troponin I < 0.0120 C-Reactive Protein < 5.00 Total Protein 9.7 H Albumin 3.9 Globulin 5.8 H Albumin/Globulin Ratio 0.7 L Lipase 79 Venous Blood Potassium Urine Color Tasha Urine Clarity Cloudy Urine pH 5.0 Ur Specific [place] 1.036 H Urine Protein 30 Urine Glucose (UA) >=500 Urine Ketones Negative Urine Blood Negative Urine Nitrate Negative Urine Bilirubin Negative Urine Urobilinogen 2.0 H Ur Leukocyte Esterase Small Urine RBC (Auto) 7 H Urine Microscopic WBC 7 H Ur Squamous Epith Cells 11 H Urine Bacteria Rare Hyaline Casts 3-5 H 03/24/18 03/24/18 03/24/18 00:51 06:23 13:02 WBC RBC Hgb Hct MCV MCH MCHC RDW Plt Count MPV Neut % (Auto) Lymph % (Auto) [place] % (Auto) Eos % (Auto) Baso % (Auto) Neut # (Auto) Lymph # (Auto) [place] # (Auto) Eos # (Auto) Baso # (Auto) ESR PT INR APTT pO2 VBG pH VBG pCO2 VBG HCO3 VBG Total CO2 VBG O2 Sat (Calc) VBG Base Excess VBG Potassium Sodium Chloride Glucose Lactate FiO2 Potassium Carbon Dioxide Anion Gap BUN Creatinine Est GFR ( Amer) Est GFR (Non-Af Amer) POC Glucose (mg/dL) 383 H 366 H 324 H Random Glucose Calcium Total Bilirubin AST ALT Alkaline Phosphatase Troponin I C-Reactive Protein Total Protein Albumin Globulin Albumin/Globulin Ratio Lipase Venous Blood Potassium Urine Color Urine Clarity Urine pH Ur Specific [place] Urine Protein Urine Glucose (UA) Urine Ketones Urine Blood Urine Nitrate Urine Bilirubin Urine Urobilinogen Ur Leukocyte Esterase Urine RBC (Auto) Urine Microscopic WBC Ur Squamous Epith Cells Urine Bacteria Hyaline Casts Assessment & Plan (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 Will evaluate with MRI brain and MRA of the head/neck. Will start aspirin 81 mg for now and follow imaging. Status: Acute (2) Facial weakness Assessment and Plan: May be due to previous pontine stroke. Status: Acute (3) Headache Status: Resolved (4) Hyperglycemia Status: Resolved
[2018-03-24] MEDS ORDERED: Alum-Mag Hydrox-Simethicone Susp (30 mL) PO PRN (16:04)
[2018-03-24] MEDS: Insulin Lispro (humaLOG) 100 Units/ml Inj SC SCH ×2 (17:51→21:32)
[2018-03-24] MEDS: Insulin Detemir 100 Units/ml Inj SC SCH (21:28)
[2018-03-25] MEDS: Multivitamin With Minerals Tab PO SCH (08:59)
[2018-03-25] MEDS: Insulin Lispro (humaLOG) 100 Units/ml Inj SC SCH ×4 (09:06→21:32)
--- NOTE | 2018-03-25 15:31 | CP.PCM.PN ---
Subjective - Date & Time of Evaluation Date of Evaluation: 03/25/18 Time of Evaluation: 15:29 - Subjective Subjective: Mrs. Wells was seen and examined today at bedside. She continues to have right eye difficulty with opening and 3rd nerve palsy. She also complained of intermittent headache, but current she is doing well. The MRI was done, but report is not yet available. Objective - Vital Signs/Intake and Output Vital Signs (last 24 hours): Temp Pulse Resp BP Pulse Ox 97.7 F 71 20 173/91 H 98 03/25/18 12:48 03/25/18 12:48 03/25/18 12:48 03/25/18 12:48 03/25/18 12:48 - Medications Medications: Current Medications Acetaminophen (Tylenol 325mg Tab) 650 mg PO Q6 PRN PRN Reason: Fever >101 F Al Hydrox/Mg Hydrox/Simethicone (Maalox Plus 30 Ml) 30 ml PO DAILY PRN PRN Reason: Indigestion / Heartburn Last Admin: 03/25/18 09:02 Dose: 30 ml Amlodipine Besylate (Norvasc) 5 mg PO DAILY [facility] Last Admin: 03/25/18 13:01 Dose: 5 mg Aripiprazole (Abilify) 2 mg PO HS [facility] Last Admin: 03/24/18 21:25 Dose: 2 mg Aspirin (Aspirin Chewable) 81 mg PO DAILY [facility] Last Admin: 03/25/18 08:59 Dose: 81 mg Docusate Sodium (Colace) 100 mg PO DAILY PRN PRN Reason: Constipation Duloxetine HCl (Cymbalta) 30 mg PO HS [facility] Last Admin: 03/24/18 21:26 Dose: 30 mg Ergocalciferol (Drisdol 50,000 Intl Units Cap) 1 cap PO MO [facility] Famotidine (Pepcid) 40 mg PO HS [facility] Last Admin: 03/24/18 21:26 Dose: 40 mg Folic Acid (Folic Acid) 1 mg PO DAILY [facility] Last Admin: 03/25/18 08:59 Dose: 1 mg Furosemide (Lasix) 40 mg PO DAILY [facility] Last Admin: 03/25/18 09:00 Dose: 40 mg Ibuprofen (Motrin Tab) 600 mg PO Q8 PRN PRN Reason: Headache Insulin Detemir (Levemir) 50 units SC HS [facility] Last Admin: 03/24/18 21:28 Dose: 50 units Insulin Human Lispro (Humalog) 0 units SC ACHS [facility]; Protocol Last Admin: 03/25/18 13:00 Dose: 6 units Memantine (Namenda) 5 mg PO DAILY [facility] Last Admin: 03/25/18 09:01 Dose: 5 mg Multivitamins/Minerals (Therapeutic-M Tab) 1 tab PO DAILY [facility] Last Admin: 03/25/18 08:59 Dose: 1 tab Sitagliptin Phosphate (Januvia) 100 mg PO DAILY [facility] Last Admin: 03/25/18 08:59 Dose: 100 mg - Labs Labs: 03/23/18 18:29 03/23/18 18:56 PT 13.5 Seconds (9.8-13.1) H 03/23/18 16:56 INR 1.2 03/23/18 16:56 APTT 37.7 Seconds (25.6-37.1) H 03/23/18 16:56 - Neurological Exam Additional comments: Neurologically unchanged compared with previous examination. 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 Will follow MRI report and continue current medications. Status: Acute (2) Facial weakness Status: Acute (3) Headache Status: Resolved (4) Hyperglycemia Status: Resolved
--- NOTE | 2018-03-25 18:30 | CP.PCM.PN ---
Subjective - Date & Time of Evaluation Date of Evaluation: 03/25/18 Time of Evaluation: 10:00 - Subjective Subjective: patient seen and examined at bedside. no acute events overnight. neurology saw patient. MRI obtained, pending read. No complaints other than headache. Patient states history of migraines. Usually relieved by aleve. Objective - Vital Signs/Intake and Output Vital Signs (last 24 hours): Temp Pulse Resp BP Pulse Ox 97.7 F 75 16 163/80 H 95 03/25/18 16:05 03/25/18 16:05 03/25/18 16:05 03/25/18 16:05 03/25/18 16:05 - Medications Medications: Current Medications Acetaminophen (Tylenol 325mg Tab) 650 mg PO Q6 PRN PRN Reason: Fever >101 F Al Hydrox/Mg Hydrox/Simethicone (Maalox Plus 30 Ml) 30 ml PO DAILY PRN PRN Reason: Indigestion / Heartburn Last Admin: 03/25/18 09:02 Dose: 30 ml Amlodipine Besylate (Norvasc) 5 mg PO DAILY ON LICENSE OF [facility] Last Admin: 03/25/18 13:01 Dose: 5 mg Aripiprazole (Abilify) 2 mg PO HS ON LICENSE OF [facility] Last Admin: 03/24/18 21:25 Dose: 2 mg Aspirin (Aspirin Chewable) 81 mg PO DAILY ON LICENSE OF [facility] Last Admin: 03/25/18 08:59 Dose: 81 mg Docusate Sodium (Colace) 100 mg PO DAILY PRN PRN Reason: Constipation Duloxetine HCl (Cymbalta) 30 mg PO HS ON LICENSE OF [facility] Last Admin: 03/24/18 21:26 Dose: 30 mg Ergocalciferol (Drisdol 50,000 Intl Units Cap) 1 cap PO MO ON LICENSE OF [facility] Famotidine (Pepcid) 40 mg PO HS ON LICENSE OF [facility] Last Admin: 03/24/18 21:26 Dose: 40 mg Folic Acid (Folic Acid) 1 mg PO DAILY ON LICENSE OF [facility] Last Admin: 03/25/18 08:59 Dose: 1 mg Furosemide (Lasix) 40 mg PO DAILY ON LICENSE OF [facility] Last Admin: 03/25/18 09:00 Dose: 40 mg Ibuprofen (Motrin Tab) 600 mg PO Q8 PRN PRN Reason: Headache Insulin Detemir (Levemir) 50 units SC HS ON LICENSE OF [facility] Last Admin: 03/24/18 21:28 Dose: 50 units Insulin Human Lispro (Humalog) 0 units SC ACHS ON LICENSE OF [facility]; Protocol Last Admin: 03/25/18 16:44 Dose: 3 units Memantine (Namenda) 5 mg PO DAILY ON LICENSE OF [facility] Last Admin: 03/25/18 09:01 Dose: 5 mg Multivitamins/Minerals (Therapeutic-M Tab) 1 tab PO DAILY ON LICENSE OF [facility] Last Admin: 03/25/18 08:59 Dose: 1 tab Sitagliptin Phosphate (Januvia) 100 mg PO DAILY ON LICENSE OF [facility] Last Admin: 03/25/18 08:59 Dose: 100 mg - Labs Labs: 03/23/18 18:29 03/23/18 18:56 PT 13.5 Seconds (9.8-13.1) H 03/23/18 16:56 INR 1.2 03/23/18 16:56 APTT 37.7 Seconds (25.6-37.1) H 03/23/18 16:56 - Additional Findings Additional findings: - Constitutional Appears: No Acute Distress - Head Exam Head Exam: ATRAUMATIC, NORMAL INSPECTION Additional comments: Presence of weakness of upper and lower facial muscles on right side. Presence of prominent right ptosis. - Eye Exam Eye Exam: EOMI - Neck Exam Neck exam: Positive for: Normal Inspection - Respiratory Exam Respiratory Exam: Clear to Auscultation Bilateral, NORMAL BREATHING PATTERN - Cardiovascular Exam Cardiovascular Exam: REGULAR RHYTHM, +S1, +S2 - GI/Abdominal Exam GI & Abdominal Exam: Normal Bowel Sounds, Soft. absent: Distended, Guarding, Tenderness - Neurological Exam Neurological exam: Alert, Oriented x3 Assessment and Plan - Assessment and Plan (Free Text) Assessment: 62 y/o f with a PMHx of DM and HTN admitted for evaluation and management of right facial hemiparesis. Head CT Chronic re-identified small lacunar infarct, brainstem. Evidence of chronic infarct involving the left cerebellum. HSV titers and Lyme titers pending MRI pending nsaids for headache Neurology consult appreciated, Dr Green. F/U recommendations Continue management as ordered.
[2018-03-25] MEDS: Insulin Detemir 100 Units/ml Inj SC SCH (21:33)
[2018-03-26] MEDS: Insulin Lispro (humaLOG) 100 Units/ml Inj SC SCH ×4 (09:08→21:37)
[2018-03-26] MEDS: Multivitamin With Minerals Tab PO SCH (09:08)
--- NOTE | 2018-03-26 17:22 | MRI ---
Date of service: 03/24/2018 PROCEDURE: MRI BRAIN WITHOUT CONTRAST HISTORY: facial droop and CT evidence of stroke COMPARISON: None available. TECHNIQUE: Multiplanar, multisequence MR images of the brain were obtained without intravenous contrast enhancement. FINDINGS: HEMORRHAGE: None DWI: There definite foci of T2 shine through effect at the left parietal lobe medially and right occipital lobe laterally with areas of bright diffusion-weighted signal corresponding to bright ADC signal. It is difficult to project lead left parietal signal changes in the diffusion-weighted study because artifacts can occur in this distribution but given the asymmetry, it is suspicious for infarct of acute subacute nature of the left parietal lobe posteromedially. The lack of mass effect suggests that this is artifact. Further clinical correlation is recommended. No additional potential acute or subacute brain infarction based on diffusion weighted sequences. BRAIN PARENCHYMA: Chronic lacunes are again identified at the raj and bilateral cerebellar hemispheres. Chronic infarct of the left cerebellum reiterated. Hemosiderin is identified at the right side of the raj possibly reflecting small cavernoma or old hemorrhage. Diffuse cerebral atrophy chronic microangiopathy are reiterated. No interval suspicious extra-axial fluid collection. VENTRICLES: Unremarkable. No hydrocephalus. CRANIUM: Unremarkable. ORBITS: Grossly unremarkable. PARANASAL SINUSES/MASTOIDS: Clear VASCULAR SYSTEM: Skull base flow voids intact. OTHER FINDINGS: None. IMPRESSION: Potential for acute subacute posteromedial left parietal infarct though this is not definite. Mass-effect is not identified in this distribution though asymmetric diffusion-weighted signal is present here. Pattern may be artifactual. Exam otherwise stable in the interval including age-related degenerative findings and bilateral pontine and cerebellar lacunes and small lobar left cerebellar infarct.
--- NOTE | 2018-03-26 18:41 | CP.PCM.PN ---
Subjective - Date & Time of Evaluation Date of Evaluation: 03/26/18 Time of Evaluation: 11:00 - Subjective Subjective: patient seen and examined at bedside. no acute events overnight. complains of headache, right temporal. no visual loss. MRI completed, pending read. Objective - Vital Signs/Intake and Output Vital Signs (last 24 hours): Temp Pulse Resp BP Pulse Ox 97.5 F L 80 18 165/97 H 95 03/26/18 16:29 03/26/18 16:29 03/26/18 16:29 03/26/18 16:29 03/26/18 16:29 - Medications Medications: Current Medications Acetaminophen (Tylenol 325mg Tab) 650 mg PO Q6 PRN PRN Reason: Fever >101 F Acetaminophen (Tylenol 325mg Tab) 650 mg PO Q6 PRN PRN Reason: Pain, Mild (1-3) Last Admin: 03/26/18 15:07 Dose: 650 mg Al Hydrox/Mg Hydrox/Simethicone (Maalox Plus 30 Ml) 30 ml PO DAILY PRN PRN Reason: Indigestion / Heartburn Last Admin: 03/25/18 09:02 Dose: 30 ml Amlodipine Besylate (Norvasc) 5 mg PO DAILY [facility] Last Admin: 03/26/18 09:07 Dose: 5 mg Aripiprazole (Abilify) 2 mg PO HS [facility] Last Admin: 03/25/18 21:31 Dose: 2 mg Aspirin (Aspirin Chewable) 81 mg PO DAILY [facility] Last Admin: 03/26/18 09:06 Dose: 81 mg Docusate Sodium (Colace) 100 mg PO DAILY PRN PRN Reason: Constipation Duloxetine HCl (Cymbalta) 30 mg PO HS [facility] Last Admin: 03/25/18 21:31 Dose: 30 mg Ergocalciferol (Drisdol 50,000 Intl Units Cap) 1 cap PO MO [facility] Famotidine (Pepcid) 40 mg PO HS [facility] Last Admin: 03/25/18 21:32 Dose: 40 mg Folic Acid (Folic Acid) 1 mg PO DAILY [facility] Last Admin: 03/26/18 09:06 Dose: 1 mg Furosemide (Lasix) 40 mg PO DAILY [facility] Last Admin: 03/26/18 09:06 Dose: 40 mg Ibuprofen (Motrin Tab) 600 mg PO Q8 PRN PRN Reason: Headache Insulin Detemir (Levemir) 50 units SC [facility] Last Admin: 03/25/18 21:33 Dose: 50 units Insulin Human Lispro (Humalog) 0 units SC [facility]; Protocol Last Admin: 03/26/18 18:00 Dose: 8 units Memantine (Namenda) 5 mg PO DAILY [facility] Last Admin: 03/26/18 09:07 Dose: 5 mg Multivitamins/Minerals (Therapeutic-M Tab) 1 tab PO DAILY [facility] Last Admin: 03/26/18 09:08 Dose: 1 tab Prednisone (Prednisone Tab) 40 mg PO DAILY [facility] Last Admin: 03/26/18 13:45 Dose: 40 mg Sitagliptin Phosphate (Januvia) 100 mg PO DAILY [facility] Last Admin: 03/26/18 09:06 Dose: 100 mg - Labs Labs: 03/23/18 18:29 03/23/18 18:56 PT 13.5 Seconds (9.8-13.1) H 03/23/18 16:56 INR 1.2 03/23/18 16:56 APTT 37.7 Seconds (25.6-37.1) H 03/23/18 16:56 - Additional Findings Additional findings: - Constitutional Appears: No Acute Distress - Head Exam Head Exam: ATRAUMATIC, NORMAL INSPECTION Additional comments: Presence of weakness of upper and lower facial muscles on right side. Presence of prominent right ptosis. - Eye Exam Eye Exam: EOMI - Neck Exam Neck exam: Positive for: Normal Inspection - Respiratory Exam Respiratory Exam: Clear to Auscultation Bilateral, NORMAL BREATHING PATTERN - Cardiovascular Exam Cardiovascular Exam: REGULAR RHYTHM, +S1, +S2 - GI/Abdominal Exam GI & Abdominal Exam: Normal Bowel Sounds, Soft. absent: Distended, Guarding, Tenderness - Neurological Exam Neurological exam: Alert, Oriented x3 Assessment and Plan - Assessment and Plan (Free Text) Assessment: 62 y/o f with a PMHx of DM and HTN admitted for evaluation and management of right facial hemiparesis. Head CT Chronic re-identified small lacunar infarct, brainstem. Evidence of chronic infarct involving the left cerebellum. HSV titers and Lyme titers pending MRI pending nsaids for headache trial steroids for ?[facility] Neurology consult appreciated, Dr Green. F/U recommendations Continue management as ordered.
[2018-03-26] MEDS: Insulin Detemir 100 Units/ml Inj SC SCH (21:39)
[2018-03-27] MEDS ORDERED: Ergocalciferol 50,000 Intl Units Cap PO SCH (06:42)
[2018-03-27] MEDS: Insulin Lispro (humaLOG) 100 Units/ml Inj SC SCH ×5 (06:45→21:52)
[2018-03-27] MEDS: Multivitamin With Minerals Tab PO SCH (09:22)
--- NOTE | 2018-03-27 09:40 | MRI ---
Date of service: 03/24/2018 PROCEDURE: MR Angiography of the neck without contrast HISTORY: intracranial atherosclerotic disease COMPARISON: None available. TECHNIQUE: 3D [id number] angiography of the neck was performed. Rotating maximum intensity projection images of the cervical carotid and vertebral arteries were generated. The origins of the common carotid arteries were not visualized, which is a limitation inherent to the non-contrast time of flight technique. FINDINGS: RIGHT CAROTID ARTERIES: Common Carotid Artery: Normal. Carotid Bifurcation: Normal. Internal Carotid Artery:Normal. External Carotid Artery (proximal branches): Normal. LEFT CAROTID ARTERIES: Common Carotid Artery: Normal. Carotid Bifurcation: Normal. Internal Carotid Artery:Normal. External Carotid Artery (proximal branches): Normal. VERTEBRAL ARTERIES: Right Vertebral Artery: Normal. Left Vertebral Artery: The distal left vertebral artery is hypoplastic but patent. OTHER FINDINGS: None. IMPRESSION: No significant stenosis on MR Angiography of the neck.
--- NOTE | 2018-03-27 09:43 | MRI ---
Date of service: 03/24/2018 PROCEDURE: Magnetic Resonance Angiography Brain HISTORY: intracranial atherosclerotic disease COMPARISON: None available. TECHNIQUE: 3D time of flight MR angiography of the intracranial arteries was performed. Rotating maximum intensity projection images were generated. FINDINGS: INTERNAL CAROTID ARTERIES: Unremarkable. The skull base, petrous, cavernous and supraclinoid segments are bilaterally widely patient. ANTERIOR CEREBRAL ARTERIES: Mildly hypoplastic but patent right A1 MARTÍNEZ segment. Bilateral A2 and left A1 MARTÍNEZ segments are widely patent. Smaller distal branches unremarkable, as visualized. MIDDLE CEREBRAL ARTERIES: Unremarkable. M1 and M2 segments are widely patent. Perisylvian branches grossly symmetric. POSTERIOR CIRCULATION: Basilar Artery: Unremarkable. Distal Vertebral Arteries: Right dominant vertebrobasilar circulation due to mild right vertebral artery hypoplasia at the intracranial segment. Posterior Cerebral Arteries: Unremarkable. Posterior Inferior Cerebellar Arteries: Unremarkable. ANEURYSM/ VASCULAR MALFORMATIONS: None. OTHER FINDINGS: None. IMPRESSION: No significant stenosis or definite occlusion identified on MR angiography of the brain.
--- NOTE | 2018-03-27 13:44 | CP.PCM.PN ---
Subjective - Date & Time of Evaluation Date of Evaluation: 03/27/18 Time of Evaluation: 10:00 - Subjective Subjective: patient seen and examined at bedside. no acute events overnight. Headache improved. Sugars elevated now with steroid. MRI read, pending MRA. no other complaints at this time. Objective - Vital Signs/Intake and Output Vital Signs (last 24 hours): Temp Pulse Resp BP Pulse Ox 98.0 F 84 18 161/96 H 95 03/27/18 12:00 03/27/18 12:00 03/27/18 12:00 03/27/18 12:00 03/27/18 12:00 - Medications Medications: Current Medications Acetaminophen (Tylenol 325mg Tab) 650 mg PO Q6 PRN PRN Reason: Fever >101 F Acetaminophen (Tylenol 325mg Tab) 650 mg PO Q6 PRN PRN Reason: Pain, Mild (1-3) Last Admin: 03/26/18 15:07 Dose: 650 mg Al Hydrox/Mg Hydrox/Simethicone (Maalox Plus 30 Ml) 30 ml PO DAILY PRN PRN Reason: Indigestion / Heartburn Last Admin: 03/25/18 09:02 Dose: 30 ml Amlodipine Besylate (Norvasc) 5 mg PO DAILY [facility] Last Admin: 03/27/18 09:18 Dose: 5 mg Aripiprazole (Abilify) 2 mg PO HS [facility] Last Admin: 03/26/18 21:36 Dose: 2 mg Aspirin (Aspirin Chewable) 81 mg PO DAILY [facility] Last Admin: 03/27/18 09:16 Dose: 81 mg Docusate Sodium (Colace) 100 mg PO DAILY PRN PRN Reason: Constipation Duloxetine HCl (Cymbalta) 30 mg PO HS [facility] Last Admin: 03/26/18 21:35 Dose: 30 mg Ergocalciferol (Drisdol 50,000 Intl Units Cap) 1 cap PO MO [facility] Last Admin: 03/27/18 06:45 Dose: 1 cap Famotidine (Pepcid) 40 mg PO HS [facility] Last Admin: 03/26/18 21:35 Dose: 40 mg Folic Acid (Folic Acid) 1 mg PO DAILY [facility] Last Admin: 03/27/18 09:16 Dose: 1 mg Furosemide (Lasix) 40 mg PO DAILY [facility] Last Admin: 03/27/18 09:17 Dose: 40 mg Ibuprofen (Motrin Tab) 600 mg PO Q8 PRN PRN Reason: Headache Insulin Detemir (Levemir) 50 units SC HS [facility] Last Admin: 03/26/18 21:39 Dose: 50 units Insulin Human Lispro (Humalog) 0 units SC ACHS [facility]; Protocol Last Admin: 03/27/18 13:29 Dose: 2 units Memantine (Namenda) 5 mg PO DAILY [facility] Last Admin: 03/27/18 09:18 Dose: 5 mg Multivitamins/Minerals (Therapeutic-M Tab) 1 tab PO DAILY [facility] Last Admin: 03/27/18 09:22 Dose: 1 tab Prednisone (Prednisone Tab) 40 mg PO DAILY [facility] Last Admin: 03/27/18 09:22 Dose: 40 mg Sitagliptin Phosphate (Januvia) 100 mg PO DAILY [facility] Last Admin: 03/27/18 09:17 Dose: 100 mg - Labs Labs: 03/23/18 18:29 03/23/18 18:56 PT 13.5 Seconds (9.8-13.1) H 03/23/18 16:56 INR 1.2 03/23/18 16:56 APTT 37.7 Seconds (25.6-37.1) H 03/23/18 16:56 - Additional Findings Additional findings: - Constitutional Appears: No Acute Distress - Head Exam Head Exam: ATRAUMATIC, NORMAL INSPECTION Additional comments: Presence of weakness of upper and lower facial muscles on right side. Presence of prominent right ptosis. - Eye Exam Eye Exam: EOMI - Neck Exam Neck exam: Positive for: Normal Inspection - Respiratory Exam Respiratory Exam: Clear to Auscultation Bilateral, NORMAL BREATHING PATTERN - Cardiovascular Exam Cardiovascular Exam: REGULAR RHYTHM, +S1, +S2 - GI/Abdominal Exam GI & Abdominal Exam: Normal Bowel Sounds, Soft. absent: Distended, Guarding, Tenderness - Neurological Exam Neurological exam: Alert, Oriented x3 Assessment and Plan - Assessment and Plan (Free Text) Assessment: 62 y/o f with a PMHx of DM and HTN admitted for evaluation and management of right facial hemiparesis. Head CT Chronic re-identified small lacunar infarct, brainstem. Evidence of chronic infarct involving the left cerebellum. HSV titers positive and Lyme titers negative MRI reviewed MRA pending nsaids for headache prn c/w steroid for now Consult endocrinology for DM, Dr. Yung Neurology consult appreciated, Dr Green. F/U recommendations Continue management as ordered.
--- NOTE | 2018-03-27 14:56 | CARD ---
APPROVED REPORT Date of service: 03/27/2018 EXAM: Two-dimensional and M-mode echocardiogram with Doppler and color Doppler. Other Information Quality : GoodRhythm : NSR INDICATION CVA/TIA 2D DIMENSIONS IVSd1.26 (0.7-1.1cm)LVDd3.64 (3.9-5.9cm) LVOT Diameter1.71 (1.8-2.4cm)PWd1.14 (0.7-1.1cm) IVSs1.49 (0.8-1.2cm)LVDs2.36 (2.5-4.0cm) FS (%) 35.2 %PWs1.48 (0.8-1.2cm) M-Mode DIMENSIONS Left Atrium (MM)3.97 (2.5-4.0cm)IVSd1.47 (0.7-1.1cm) Aortic Root3.09 (2.2-3.7cm)LVDd5.32 (4.0-5.6cm) Aortic Cusp Exc.1.71 (1.5-2.0cm)PWd0.88 (0.7-1.1cm) IVSs1.82 cmFS (%) 38 % LVDs3.32 (2.0-3.8cm)PWs1.56 cm Aortic Valve AoV Peak Wgfwlvhc649.4cm/sAoV VTI25.0cmAO Peak GR.7mmHg LVOT Peak Hgfmwdba78.6cm/sLVOT VTI18.20cmAO Mean GR.4mmHg LES (VMAX)0.00nt4LNQ (VTI)0.98cm2 Mitral Valve MV E Tkotgsjp33.8cm/sMV DECEL [id number] A Byzanaxi67.1cm/s MV JYG96elX/A ratio0.9MVA (PHT)3.81cm2 TDI Lateral E' Peak V9.78cm/sMedial E' Peak V6.03cm/sE/Lateral E'7.5 E/Medial E'12.2 Pulmonary Valve PV Peak Npexjuap52.9cm/s Tricuspid Valve TR Peak Qnrxizsp824yq/sRAP PIVFNBYX27elDoJB Peak Gr.12mmHg [id number] LEFT VENTRICLE The left ventricle is normal size. There is normal left ventricular wall thickness. The left ventricular systolic function is normal. The estimated ejection fraction is 60-65% No regional wall motion abnormalities noted.. Transmitral Doppler flow pattern is Grade I-abnormal relaxation pattern. No left ventricle thrombus noted on this study. There is no ventricular septal defect visualized. There is no left ventricular aneurysm. There is no mass noted in the left ventricle. RIGHT VENTRICLE The right ventricle is normal size. There is normal right ventricular wall thickness. The right ventricular systolic function is normal. ATRIA The left atrium size is normal. The right atrium size is normal. The interatrial septum is intact with no evidence for an atrial septal defect. AORTIC VALVE The aortic valve is normal in structure. No aortic regurgitation is present. There is no aortic valvular stenosis. There is no aortic valvular vegetation. MITRAL VALVE The mitral valve is normal in structure. There is no evidence of mitral valve prolapse. There is no mitral valve stenosis. There is no mitral valve regurgitation noted. TRICUSPID VALVE The tricuspid valve is normal in structure. There is trace tricuspid valve regurgitation noted. RVSP is calculated at 21 mm Hg. There is no tricuspid valve prolapse or vegetation. There is no tricuspid valve stenosis. PULMONIC VALVE The pulmonary valve is normal in structure. There is no pulmonic valvular regurgitation. There is no pulmonic valvular stenosis. GREAT VESSELS The aortic root is normal in size. The ascending aorta is normal in size. The pulmonary artery is normal. The IVC is normal in size and collapses >50% with inspiration. PERICARDIAL EFFUSION There is no pericardial effusion. There is no pleural effusion. <Conclusion> The estimated ejection fraction is 60-65% Transmitral Doppler flow pattern is Grade I-abnormal relaxation pattern. The left atrium size is normal. The interatrial septum is intact with no evidence for an atrial septal defect. There is trace tricuspid valve regurgitation noted. RVSP is calculated at 21 mm Hg.
[2018-03-27] MEDS: Insulin Detemir 100 Units/ml Inj SC SCH (21:54)
[2018-03-28 00:18] VITALS: RESP 18
[2018-03-28 05:35] LABS: HEMOGLOBIN 14.4 g/dL (12.0-16.0); MEAN CORPUSCULAR HEMOGLOBIN 28.7 pg (27.0-31.0); MEAN CORPUSCULAR HGB CONC 32.3 g/dL (33.0-37.0); RED CELL DISTRIBUTION WIDTH 15.3 % (11.5-14.5); WHITE BLOOD COUNT 10.8 K/uL (4.8-10.8)
[2018-03-28 05:59] LABS: ALB/GLOB RATIO 0.7 (1.0-2.1); ALT/SGPT 50 U/L (9-52); AST/SGOT 57 U/L (14-36); BLOOD UREA NITROGEN 23 mg/dl (7-17); CALCIUM 9.5 mg/dL (8.4-10.2); GFR NON-AFRICAN AMERICAN > 60
[2018-03-28] MEDS ORDERED: Sodium Chloride 0.9% 1,000 ML IV ONE (06:27)
[2018-03-28] MEDS: Insulin Lispro (humaLOG) 100 Units/ml Inj SC SCH ×4 (06:58→15:18)
[2018-03-28 07:28] LABS: BLOOD UREA NITROGEN 23 mg/dl (7-17); CALCIUM 9.4 mg/dL (8.4-10.2); GFR NON-AFRICAN AMERICAN > 60
--- NOTE | 2018-03-28 07:34 | CON ---
DATE: 03/27/2018 ENDOCRINOLOGY CONSULTATION LOCATION: In room 403. HISTORY OF PRESENT ILLNESS: This is a 62-year-old female with known history of type 2 insulin-requiring diabetes, presenting here with right facial palsy and currently receiving steroid therapy and is now being referred for diabetic evaluation because of marked hyperglycemic accelerations as noted thereof. PAST MEDICAL HISTORY: As mentioned above, history of type 2 insulin-requiring diabetes, on a combination of Levemir given as 50 units subcu at bedtime daily with Humalog 75/25 given as 50 units b.i.d. before meals as given. History of hypertension and dyslipidemia. FAMILY HISTORY: Positive for diabetes and hypertension. SOCIAL HISTORY: The patient has supportive family. No known substance use. REVIEW OF SYSTEMS: As mentioned above. Admits to sudden onset of generalized body weakness with easy fatigability and tiredness and supervening dizziness and lightheadedness, worse in the last two to three days prior to admission. Also admits to sudden weakness in the right side of her face and closure of the right eye as noted. No chest pains or palpitations, but admits to episodic bouts of shortness of breath, especially on exertion. Her oral intake has been variable with nausea and dyspepsia and admits to marked polyuria, nocturia and polydipsia. PHYSICAL EXAMINATION: GENERAL: Average-built female in no apparent distress. VITAL SIGNS: Blood pressure of 140/80, pulse of 70 beats per minute regular, temperature 98, respirations 20, height is 5 feet 1 inch, weight is 153 pounds. HEENT: Head normocephalic. Eyes anicteric with pink conjunctivae. Funduscopy not possible at this time. Ears, nose and throat otherwise normal. NECK: Supple. Thyroid gland is normal in size. No carotid bruits or any cervical adenopathy. CARDIOPULMONARY: Some adynamic precordium. S1 and S2 is rapid and regular. LUNGS: Clear to auscultation. ABDOMEN: Flat, soft with positive bowel sounds. EXTREMITIES: No pitting edema. Pulses are +2 bilaterally. NEUROLOGICAL: There is evidence of a right facial palsy and also closure of the right eye as noted. No other focal neurologic deficits as noted otherwise. LABORATORY DATA: Showed a BUN of 19, sodium 137, potassium 4.2, chloride 102, CO2 of 22, glucose 345, and creatinine 0.4. Her glucose levels have ranged from 190 to 303 and 340 mg/dL. It was over 500 at bedtime last night. ASSESSMENT: This is a 62-year-old female with uncontrolled and decompensated type 2 insulin-requiring diabetes, presenting here with right facial palsy and currently on steroid therapy, which also caused further impaired glucose tolerance and supervening marked hyperglycemic accelerations as noted and expected thereof. She also has diabetic polyneuropathy and underlying vasculopathy as noted. PLAN OF MANAGEMENT: As discussed the patient at bedside. We will modify her current insulin regimen to a more physiologic basal and bolus insulin drug combination with Humalog to be started at 10 units subcu t.i.d. to start today as ordered. We will modify the coverage scale to obviate hypoglycemia and detailed orders have been given for Humalog coverage scale as ordered. We will also continue the Levemir given as 50 units subcu at bedtime daily to start tonight. We will modify the current insulin regimen to optimize metabolic control. We will obtain a hemoglobin A1c to confirm her glycemic control and baseline thyroid function studies will be ordered. We will obtain serial chemistries and supplement accordingly as needed. We will follow. Isa Yung MD
[2018-03-28] MEDS: Multivitamin With Minerals Tab PO SCH (09:01)
[2018-03-28 14:35] VITALS: BP 173/84; PULSE 78; TEMP 98; O2SAT 95
--- NOTE | 2018-03-28 15:05 | CP.PCM.DIS ---
Provider - Provider Date of Admission: 03/23/18 23:21 Attending physician: Rafael Perez MD Primary care physician: Dr. Courtney Cox Consults: Neurology: Dr Green Endocrinology: Dr Yung Time Spent in preparation of Discharge (in minutes): 30 Diagnosis - Discharge Diagnosis (1) 3rd nerve palsy, partial Status: Acute Comment: -Continue with medications as ordered. (Prednisone). -F/U with neurology. (2) Facial weakness Status: Acute Hospital Course - Lab Results Lab Results: Most Recent Lab Values WBC 10.8 K/uL (4.8-10.8) D 03/28/18 04:20 RBC 5.00 Mil/uL (3.80-5.20) 03/28/18 04:20 Hgb 14.4 g/dL (12.0-16.0) 03/28/18 04:20 Hct 44.5 % (34.0-47.0) 03/28/18 04:20 MCV 89.0 fl (81.0-99.0) D 03/28/18 04:20 MCH 28.7 pg (27.0-31.0) 03/28/18 04:20 MCHC 32.3 g/dL (33.0-37.0) L 03/28/18 04:20 RDW 15.3 % (11.5-14.5) H 03/28/18 04:20 Plt Count 214 K/uL (130-400) 03/28/18 04:20 MPV 10.5 fl (7.2-11.7) 03/23/18 18: Neut % (Auto) 51.6 % (50.0-75.0) 03/23/18 18: Lymph % (Auto) 37.7 % (20.0-40.0) 03/23/18 18: Ross % (Auto) 7.9 % (0.0-10.0) 03/23/18 18: Eos % (Auto) 1.6 % (0.0-4.0) 03/23/18 18:29 Baso % (Auto) 1.2 % (0.0-2.0) 03/23/18 18: Neut # (Auto) 3.6 K/uL (1.8-7.0) 03/23/18 18:29 Lymph # (Auto) 2.7 K/uL (1.0-4.3) 03/23/18 18:29 Ross # (Auto) 0.6 K/uL (0.0-0.8) 03/23/18 18:29 Eos # (Auto) 0.1 K/uL (0.0-0.7) 03/23/18 18:29 Baso # (Auto) 0.1 K/uL (0.0-0.2) 03/23/18 18: ESR 48 mm/hr (0-30) H 03/23/18 18:29 PT 13.5 Seconds (9.8-13.1) H 03/23/18 16:56 INR 1.2 03/23/18 16:56 APTT 37.7 Seconds (25.6-37.1) H 03/23/18 16:56 pO2 42 mm/Hg (30-55) 03/23/18 18:12 VBG pH 7.41 (7.32-7.43) 03/23/18 18:12 VBG pCO2 42 mmHg (40-60) 03/23/18 18:12 VBG HCO3 25.7 mmol/L 03/23/18 18:12 VBG Total CO2 27.9 mmol/L (22-28) 03/23/18 18:12 VBG O2 Sat (Calc) 81.9 % (40-65) H 03/23/18 18:12 VBG Base Excess 1.7 mmol/L (0.0-2.0) 03/23/18 18:12 VBG Potassium 3.9 mmol/L (3.6-5.2) 03/23/18 18:12 Sodium 137.0 mmol/L (132-148) 03/23/18 18:12 Chloride 104.0 mmol/L (98-107) 03/23/18 18:12 Glucose 339 mg/dL (65-105) H 03/23/18 18:12 Lactate 2.0 mmol/L (0.7-2.1) 03/23/18 18:12 FiO2 21.0 % 03/23/18 18:12 Sodium 136 mmol/l (132-148) 03/28/18 06:45 Potassium 4.0 MMOL/L (3.6-5.0) 03/28/18 06:45 Chloride 98 mmol/L (98-107) 03/28/18 06:45 Carbon Dioxide 27 mmol/L (22-30) 03/28/18 06:45 Anion Gap 15 (10-20) 03/28/18 06:45 BUN 23 mg/dl (7-17) H 03/28/18 06:45 Creatinine 0.5 mg/dl (0.7-1.2) L 11 06:45 Est GFR ( Amer) > 60 03/28/18 06:45 Est GFR (Non-Af Amer) > 60 03/28/18 06:45 POC Glucose (mg/dL) 258 mg/dL (65-110) H 03/28/18 10:47 Random Glucose 258 mg/dL (65-105) H 03/28/18 06:45 Hemoglobin A1c 10.8 % (4.2-6.5) H 03/27/18 12:45 Calcium 9.4 mg/dL (8.4-10.2) 03/28/18 06:45 Total Bilirubin 0.6 mg/dl (0.2-1.3) 03/28/18 04:20 AST 57 U/L (14-36) H D 03/28/18 04:20 ALT 50 U/L (9-52) 03/28/18 04:20 Alkaline Phosphatase 96 U/L (38-126) 03/28/18 04:20 Troponin I < 0.0120 ng/mL (0.00-0.120) 03/23/18 18:56 C-Reactive Protein < 5.00 mg/L (0.0-9.9) 03/23/18 18:56 Total Protein 9.5 G/DL (6.3-8.2) H 03/28/18 04:20 Albumin 4.0 g/dL (3.5-5.0) 03/28/18 04:20 Globulin 5.5 gm/dL (2.2-3.9) H 03/28/18 04:20 Albumin/Globulin Ratio 0.7 (1.0-2.1) L 03/28/18 04:20 Lipase 79 U/L (23-300) 03/23/18 18:56 Venous Blood Potassium 3.9 mmol/L (3.6-5.2) 03/23/18 18:12 Urine Color Tasha (YELLOW) 03/23/18 Urine Clarity Cloudy (Clear) 03/23/18 Urine pH 5.0 (5.0-8.0) 03/23/18 18 Ur Specific [place] 1.036 (1.003-1.030) H 03/23/18 18 Urine Protein 30 mg/dL (NEGATIVE) 03/23/18 Urine Glucose (UA) >=500 mg/dL (Normal) 03/23/18 Urine Ketones Negative mg/dL (NEGATIVE) 03/23/18 Urine Blood Negative (NEGATIVE) 03/23/18 Urine Nitrate Negative (NEGATIVE) 03/23/18 Urine Bilirubin Negative (NEGATIVE) 03/23/18 Urine Urobilinogen 2.0 mg/dL (0.2-1.0) H 03/23/18 18: Ur Leukocyte Esterase Small Adrienne/uL (Negative) 03/23/18: Urine RBC (Auto) 7 /hpf (0-3) H 03/23/18 18: Urine Microscopic WBC 7 /hpf (0-5) H 03/23/18: Ur Squamous Epith Cells 11 /hpf (0-5) H 03/23/18: Urine Bacteria Rare (<OCC) 03/23/18 18: Hyaline Casts 3-5 /hpf (0-2) H 03/23/18 18: Lyme Disease Screen <0.90 index 03/24/18 10:45 HSV I IgG Ab 2.08 index H 03/24/18 10:45 HSV II IgG 11.30 index H 03/24/18 10:45 - Hospital Course Hospital Course: 62 y/o f with a PMHx of DM and HTN admitted for evaluation and management of right ptosis and facial hemiparesis. Head CT: Chronic re-identified small lacunar infarct, brainstem, evidence of chronic infarct involving the left cerebellum. Pt was evaluated by Neurologist who started pt on Aspirin and steroids. Echocardiogram was unremarkable. transfer specialist also evaluated patient and adjusted insulin therapy. MRA of neck with no significant stenosis. MRI of brain showed acute subacute posteromedial L parietal infarct. Today, pt was evaluated and examined by bedside with Dr Monique. Pt reports feeling well, concerned about when her R ptosis will improved. Pt afebrile, tolerating PO, with Fifi cute events overnight. Pt stable, will be d/c home with Prednisone therapy and instruction to f/u with Dr Green, neurologist. Discharge Exam - Head Exam Head Exam: ATRAUMATIC, NORMAL INSPECTION, NORMOCEPHALIC - Additional Findings Additional findings: - Constitutional Appears: No Acute Distress - Head Exam Head Exam: ATRAUMATIC, NORMAL INSPECTION Additional comments: Presence of weakness of upper and lower facial muscles on right side. Presence of prominent right ptosis. - Eye Exam Eye Exam: EOMI - Neck Exam Neck exam: Positive for: Normal Inspection - Respiratory Exam Respiratory Exam: Clear to Auscultation Bilateral, NORMAL BREATHING PATTERN - Cardiovascular Exam Cardiovascular Exam: REGULAR RHYTHM, +S1, +S2 - GI/Abdominal Exam GI & Abdominal Exam: Normal Bowel Sounds, Soft. absent: Distended, Guarding, Tenderness - Neurological Exam Neurological exam: Alert, Oriented x3 Discharge Plan - Discharge Medications Prescriptions: Aspirin [Aspirin Chewable] 81 mg PO DAILY #30 chew Atorvastatin [Lipitor] 20 mg PO DAILY #30 tab Carboxymethylcellulose Sodium [Lubricant Dry Eye Relief] 15 ml OP Q2 #1 drp.lq.gel predniSONE [predniSONE Tab] 20 mg PO DAILY #14 tab - Follow Up Plan Condition: IMPROVED Disposition: HOME/ ROUTINE Instructions: Stroke (DC) Additional Instructions: Follow up with primary medical doctor. Take medications as prescribed. Follow up with eye doctor. Return to the emergency department if symptoms worsen. Referrals: Marie Cox MD [Staff Provider] - Rafael Perez MD [Medical Doctor] - Narendra Green MD [Medical Doctor] -
--- NOTE | 2018-03-28 23:09 | PN ---
DATE: 03/28/2018 ENDOCRINOLOGY FOLLOWUP NOTE LOCATION: Room 403. This is a 62-year-old female with recent uncontrolled type 2 insulin-requiring diabetes, now being followed closely for metabolic management. Her glycemic levels are fluctuating but much improved at this time, and the glucose values overnight have ranged from 258 to 260 mg/dL. Her chemistries showed a BUN of 23, sodium 136, potassium 4, chloride 98, CO2 of 27, glucose 258, and creatinine 0.5. Her hemoglobin A1c is 10.8% which is quite elevated and really indicative of suboptimal metabolic control of her diabetic condition as noted. So for now as she is scheduled for discharge, we have advised the patient to resume her home insulin regimen with Humalog 75/25 given as 50 units b.i.d. as ordered. She will also resume her Lantus given as 50 units subcutaneous at bedtime daily as given. We will consider the addition of oral hypoglycemic therapy to optimize metabolic control. We will follow. Isa Yung MD
== END 2018-03-28 15:15 | disposition home or self-care (01) | DRG 48 ==
LOC: H.ER 16:49 → H.ERHOLD 23:21 → H.TEL 03-24 02:06
PROVIDERS: ADMIT Family Medicine; ATTEND Family Medicine
DX: H49.01 Third [oculomotor] nerve palsy, right eye (principal); E11.65 Type 2 diabetes mellitus with hyperglycemia; E11.42 Type 2 diabetes mellitus with diabetic polyneuropathy; R29.810 Facial weakness; H70.11 Chronic mastoiditis, right ear; I10 Essential (primary) hypertension; E78.5 Hyperlipidemia, unspecified; Z79.4 Long term (current) use of insulin; Z86.73 Personal history of transient ischemic attack (TIA), and cerebral infarction without residual deficits; Z90.710 Acquired absence of both cervix and uterus